=== PATIENT | female | born 1955 | race Caucasian/White ===

== ENCOUNTER 2017-08-03 07:51 | Inpatient (IN) | payer MEDICARE ==
[2017-08-02 10:48] VITALS: BMI 24.7
[2017-08-03 09:33] LABS: Hemoglobin 12.1 g/dL (12.0-16.0); Mean Corpuscular HGB CONC 32.6 g/dL (32.0-36.0); Mean Corpuscular Hemoglobin 31.7 pg (27.0-31.0); Mean Corpuscular Volume 97.3 fl (81.0-99.0); Mean Platelet Volume 6.1 fL (7.4-10.4); Platelet Count 331 thou/uL (130-400); RBC Distribution Width 11.6 % (11.5-14.5); Red Blood Cell (RBC) Count 3.81 mill/uL (4.20-5.40); White Blood Cell (WBC) Count 7.4 thou/uL (4.8-10.8)
[2017-08-03 09:51] LABS: Anion Gap 14 mmol/L (10-20); BUN (Urea Nitrogen) 24 mg/dL (9.8-20.1); Calc. Creatinine Clearance 60 mL/min (70-130); Calcium 9.8 mg/dL (7.8-10.44); Carbon Dioxide 25 mmol/L (23-31); Chloride 104 mmol/L (98-107); Estimated GFR-MDRD 60; Glucose 102 mg/dL (80-115); Potassium 4.1 mmol/L (3.5-5.1); Sodium 139 mmol/L (136-145)
[2017-08-03] MEDS ORDERED: Midazolam HCl 2 mg/2 ml Vial ONE (10:03)
[2017-08-03] MEDS ORDERED: Fentanyl 100 MCG/2 ML VIAL ONE ×2 (10:04→13:20)
[2017-08-03] MEDS ORDERED: CEFAZOLIN/Water 2 GM/20 ML SYRINGE ONE (10:08)
[2017-08-03] MEDS ORDERED: Neomycin-Polymyxin 1 ML AMP ONE ×2 (10:15→11:19)
[2017-08-03] MEDS ORDERED: Zolpidem Tartrate 5 MG TAB PO PRN (10:24)
[2017-08-03] MEDS ORDERED: Ondansetron PF 4 MG/2 ML Vial IVP PRN ×2 (10:24→10:36)
[2017-08-03] MEDS ORDERED: traMADol HCl 50 MG TAB PO PRN ×3 (10:24→10:34)
[2017-08-03] MEDS ORDERED: Ropivacaine 0.2% 550 ML 550 ML NERVE BLCK SCH (10:24)
[2017-08-03] MEDS ORDERED: Promethazine HCl 25 MG/ML VIAL IM PRN (10:24)
[2017-08-03] MEDS ORDERED: HYDROcodone/Acetaminophen 10/325 mg Tablet PO PRN (10:24)
[2017-08-03] MEDS ORDERED: Fentanyl 100 MCG/2 ML VIAL IV PRN (10:25)
[2017-08-03] MEDS ORDERED: Fentanyl 250 MCG/5 ML VIAL ONE (10:26)
[2017-08-03] MEDS ORDERED: Cepastat Lozenges 1 LOZ PO PRN (10:36)
[2017-08-03] MEDS ORDERED: Fleet Enema 133 ML BOT PR PRN (10:36)
[2017-08-03] MEDS ORDERED: Milk Of Magnesia 30 ML UDCUP PO PRN (10:36)
[2017-08-03] MEDS ORDERED: Ondansetron ODT 4 MG TAB PO PRN (10:36)
[2017-08-03] MEDS ORDERED: Bisacodyl 10 MG SUPP PR PRN (10:36)
[2017-08-03] MEDS: Ketorolac Tromethamine 30 MG/ML VIAL IVP SCH ×2 (13:52→17:05)
--- NOTE | 2017-08-03 14:15 | RAD ---
2 VIEWS RIGHT TIBIA AND FIBULA: Date: 08/03/17 COMPARISON: 09/26/16. HISTORY: Postop infection. Fall. FINDINGS/IMPRESSION: Multiple limited intraoperative fluoroscopic views of the right tibia/fibula were submitted for inter pretation. The previously seen plate and screws in the distal aspect of the tibia have been removed. There is an intramedullary joanne in the tibia. The previously seen fibular neck fracture has healed. POS: JURGEN
--- NOTE | 2017-08-03 14:16 | OP ---
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 PROCEDURE: 1. Removal of hardware from right tibia. 2. Intramedullary interlocking rodding of the right distal tibia with bone grafting. SURGEON: Isrrael England M.D. ANESTHESIA: General. TECHNIQUE: The patient had a block performed prior to surgery by Anesthesia. She was given preopera tive IV antibiotics, taken to the operating room and placed in supine position. Satisfactory general anesthesia was performed. The right lower extremity was sterilely prepped and draped in usual fashi on. After exsanguination, the tourniquet was raised to 250 mmHg. The patient had a previous fractur e in the distal shaft of the right tibia. She had a well-healed scar in the anteromedial aspect of t he right leg. Incision was made through that scar. Blunt and sharp dissection was made and there wa s some bone that had formed on the edges of the plate and some bone that formed over the plate. This was removed with an osteotome and a rongeur. The 3.5 cortical and 3.5 locking screws were identifie d and removed. The 2 screws that were used as lag screws were also located and removed using fluoros copy. There was bone defect on the undersurface of the plate and there was a nonunion. Some of the fluid and bone deep in the leg below where the plate was, was sent for Gram stain and culture and sen sitivities and using a curet and rongeur the fibrous tissue that was around the plate and under the p late and in the nonunion were all carefully removed. The wound and the bone was then copiously irrig ated with antibiotic solution using the high speed fruit room hand. A 2-1/2 inch incision was made on the anteromedial aspect of the knee with the knee bent and medial retinaculum was entered. The proximal aspect of the tibia just medial to the tibial tubercle was entered with a guide and then over reamed. The intramedullary canal was then sequentially reamed up to 10.5 mm, including the nonunion site an d down into the distal aspect of the tibia. A [employer]ynthes interlocking intramedullary nail was then inse rted. It was 300 mm in length, 9 mm in diameter, it was taken down to just above the ankle joint. A screw was placed from lateral to medial in the proximal aspect of the tibia and the joanne and a screw was placed from anterior to posterior just above the ankle. This was all performed under fluoroscopi c visualization. This provided good stability for the tibial nonunion. The bone graft that was harv ested with the intramedullary reaming was combined with some allograft bone graft chips and this was placed in the nonunion site in the posterior aspect of the tibia as well as over the area where the p late had been present. The wounds were then closed using 0 Vicryl for the fat and subcutaneous tissu e, and the skin was closed with skin daryl. The medial retinaculum and the knee was closed with 0 Vicryl and this wound was also closed with skin daryl. Sterile dressing was applied. Tourniquet w as released. The patient was placed in a boot. She was awakened, extubated, and transferred to brendan very room in stable condition. ESTIMATED BLOOD LOSS: None. COMPLICATIONS: None. TOURNIQUET TIME: Seventy-four minutes.
[2017-08-03] MEDS ORDERED: Bupivacaine/Epinephrine 0.25% 30 ML VIAL ONE (14:46)
[2017-08-03] MEDS ORDERED: Bupivacaine HCl 0.5%/Epinephrine 1:200,000/PF 30 ml Vial ONE (14:46)
[2017-08-03] MEDS: HYDROcodone/Acetaminophen 10/325 mg Tablet PO PRN ×2 (15:06→21:18)
[2017-08-03] MEDS ORDERED: PROPOFOL 200 MG/20 ML VIAL ONE (15:20)
[2017-08-03] MEDS ORDERED: PHENYLEPHRINE-NS 100 MCG/ML 10 ML SYRINGE ONE (15:20)
[2017-08-03] MEDS ORDERED: Lidocaine 1% PF 5 ML VIAL ONE (15:20)
[2017-08-03] MEDS ORDERED: Dexamethasone 20 MG/5 ML VIAL ONE (15:20)
[2017-08-03] MEDS ORDERED: Ketorolac Tromethamine 30 MG/ML VIAL ONE (15:20)
[2017-08-03] MEDS ORDERED: Non-Formulary Item 1 EACH (Calcium Carbonate/Vitamin D3 [Calcium 600 + Vitamin D] 1 TABLE PO SCH (21:00)
[2017-08-03] MEDS: Senokot S 8.6-50 MG TAB PO SCH (21:16)
[2017-08-03] MEDS: Zolpidem Tartrate 5 MG TAB PO SCH (21:17)
[2017-08-03] MEDS: Ferrous Gluconate 324 MG TAB PO SCH ×2 (21:19→21:24)
[2017-08-03] MEDS: Calcium Carbonate + Vit D 1 TAB PO SCH (21:24)
[2017-08-04] MEDS: HYDROcodone/Acetaminophen 10/325 mg Tablet PO PRN ×3 (01:28→18:36)
[2017-08-04] MEDS: Ketorolac Tromethamine 30 MG/ML VIAL IVP SCH ×5 (05:10→23:12)
--- NOTE | 2017-08-04 06:23 | EKG ---
Test Reason : PREOP Blood Pressure : / mmHG Vent. Rate : 085 BPM Atrial Rate : 085 BPM P-R Int : 184 ms QRS Dur : 078 ms QT Int : 380 ms P-R-T Axes : 038 -06 048 degrees QTc Int : 452 ms Normal sinus rhythm Normal ECG When compared with ECG of 28-AUG-2016 15:13, Nonspecific T wave abnormality no longer evident in Inferior leads Nonspecific T wave abnormality has replaced inverted T waves in Lateral leads QT has shortened Confirmed by ALEXANDER HUTSON ([id number]) on 08/04/2017 6:09:54 AM Referred By: PAULINA Confirmed By:ALEXANDER HUTSON
[2017-08-04] MEDS ORDERED: FOLIC AC PO SCH (09:00)
[2017-08-04] MEDS ORDERED: IRON FUM PO SCH (09:00)
[2017-08-04] MEDS ORDERED: [UNRECOGNIZED DRUG - OTHER] PO SCH (09:00)
[2017-08-04] MEDS ORDERED: MULTIVIT MIN PO SCH (09:00)
[2017-08-04] MEDS: Multivitamin W/ Minerals 1 TAB PO SCH (09:51)
[2017-08-04] MEDS: Venlafaxine HCl XR 150 MG CAP PO SCH (09:51)
[2017-08-04] MEDS: Calcium Carbonate + Vit D 1 TAB PO SCH ×2 (09:51→20:25)
[2017-08-04] MEDS: Senokot S 8.6-50 MG TAB PO SCH ×2 (09:51→20:25)
[2017-08-04] MEDS: Ferrous Gluconate 324 MG TAB PO SCH ×2 (09:51→20:28)
--- NOTE | 2017-08-04 10:48 | PRG ---
DATE OF SERVICE: 08/04/2017 Ms. Louie is 1 day status post removal of hardware from the right distal tibia with irrigation and de bridement of the nonunion of the right distal tibia and interlocking intramedullary rodding. The patient had a block and has an indwelling catheter and provided her with excellent pain relief. The patient's maximum temperature is 99.2. Vital signs are stable. Cultures that were taken in surgery of the right tibia, thus far are negative. The Gram stain showed RBCs, few WBCs, no organisms. PLAN: The patient will be mobilized with PT and OT. She should be nonweightbearing on the right low er extremity. We will change the dressing today. We will continue to monitor cultures. Meantime, w e will continue with p.o. antibiotics including Levaquin 500 mg a day. The patient wants to go to re hab. I have talked with case investigator as far as her getting into rehab possibly tomorrow.
[2017-08-04] MEDS: Zolpidem Tartrate 5 MG TAB PO SCH (20:24)
[2017-08-05] MEDS: HYDROcodone/Acetaminophen 10/325 mg Tablet PO PRN ×3 (04:05→16:36)
[2017-08-05] MEDS: Ketorolac Tromethamine 30 MG/ML VIAL IVP SCH (06:35)
[2017-08-05] MEDS: Calcium Carbonate + Vit D 1 TAB PO SCH (08:33)
[2017-08-05] MEDS: Venlafaxine HCl XR 150 MG CAP PO SCH (08:33)
[2017-08-05] MEDS: Ferrous Gluconate 324 MG TAB PO SCH (08:33)
[2017-08-05] MEDS: Senokot S 8.6-50 MG TAB PO SCH (08:34)
[2017-08-05] MEDS: Multivitamin W/ Minerals 1 TAB PO SCH (08:34)
[2017-08-05] MEDS ORDERED: lamoTRIgine 100 MG TAB PO SCH (09:00)
[2017-08-05 15:51] VITALS: BP 151/77; TEMP 98.3
[2017-08-05] MEDS ORDERED: Lactinex Tablet PO SCH (21:00)
--- NOTE | 2017-08-05 22:51 | DIS ---
DATE OF ADMISSION: 08/03/2017 DATE OF DISCHARGE: 08/05/2017 HISTORY OF PRESENT ILLNESS: Please see admission history and physical. HOSPITAL COURSE: The patient was worked up medically prior to admission, found to be stable for surg ge[place]. She was taken to the operating room on the date of admission where under general anesthetic, th e patient underwent irrigation and debridement of the right distal tibia with removal of plate and sc rews and then intramedullary rodding of the right distal tibia with bone grafting. The patient remai tana afebrile. Vital signs remained stable. She was started on PT and OT, which she tolerated well. Arrangements were made for her to go to rehab to continue to work with PT and OT. She can be touchd own weightbearing on the right lower extremity. Cultures from surgery did grow out gram-negative joanne . The patient was started that evening of surgery on Levaquin. She will continue with the Levaquin pending sensitivities. Her dressing was changed and incision on the right leg and over the right kne e is healing very well. DISCHARGE DIAGNOSES: 1. Nonunion of the right distal tibia. 2. Apparent osteomyelitis of the right tibia. PLAN: The patient will be discharged and transferred to rehab to continue to work on activities of d aily living with physical and occupational therapy. The patient states that when she does go home fr rehab, she will be by herself, so she will need to demonstrate that she can perform all the activi ties as needed. She can touchdown weightbear on the right lower extremity. Nurses will change the d ressing daily, keep an eye on the incision. I will follow and see what the ultimate sensitivities ar e on the right tibia and to see if we continue with Levaquin or possibly change it to a more appropri ate antibiotic, also wrote a prescription for [place] 10 one every 6 hours as needed for pain #60 and shahzad sena a prescription for wheelchair.
== END 2017-08-05 17:45 | DRG 465 ==
LOC: SURG A 07:51 → EDSTATUS 10:44 → SURG A 13:35
PROVIDERS: ADMIT Orthopaedic Surgery; ATTEND Orthopaedic Surgery
PROC: 0SPV0JZ Removal of Synthetic Substitute from Right Knee Joint, Tibial Surface, Open Approach (ICD-10-PCS; principal; 2017-08-03)
PROC: 0QHG06Z Insertion of Intramedullary Internal Fixation Device into Right Tibia, Open Approach (ICD-10-PCS; 2017-08-03)
PROC: 0QBG0ZX Excision of Right Tibia, Open Approach, Diagnostic (ICD-10-PCS; 2017-08-03)
DX: S82.201K Unspecified fracture of shaft of right tibia, subsequent encounter for closed fracture with nonunion (principal); D64.9 Anemia, unspecified; M19.90 Unspecified osteoarthritis, unspecified site; F32.9 Major depressive disorder, single episode, unspecified; Z90.710 Acquired absence of both cervix and uterus
CPT/HCPCS: 36415; 76001; 80048; 85027; 87070; 87077; 87186; 87205; 93005; 93010; 96374; A4306; C1713; C1769; G8978-GP-CJ; G8979-GP-CI; G8987-GO-CK; G8988-GO-CI; J0670; J1100; J1885; J2001; J2250; J2704; J2795; J3010

== ENCOUNTER 2017-11-05 14:14 | Emergency (ER) | payer MEDICARE ==
[2017-11-05] MEDS ORDERED: Proparacaine 0.5% Opth 15 ML BOT ONE (14:32)
[2017-11-05] MEDS ORDERED: Fluorescein Opthalmic Strip ONE (14:33)
[2017-11-05] MEDS ORDERED: Nitrazine Tape 1 ROLL ONE ×2 (14:51)
== END 2017-11-05 16:20 | disposition home or self-care (01) ==
LOC: ERS 14:14
DX: S05.01XA Injury of conjunctiva and corneal abrasion without foreign body, right eye, initial encounter (principal); F31.9 Bipolar disorder, unspecified; Z79.899 Other long term (current) drug therapy; Y33.XXXA Other specified events, undetermined intent, initial encounter
CPT/HCPCS: 99283

== ENCOUNTER 2018-11-26 09:21 | Inpatient (IN) | payer MEDICARE ==
[2018-11-26] MEDS ORDERED: Morphine 4 MG/ML VIAL ONE (09:51)
[2018-11-26] MEDS ORDERED: Ondansetron PF 4 MG/2 ML Vial ONE (09:52)
[2018-11-26] MEDS ORDERED: diphenhydrAMINE 50 MG/ML VIAL ONE (10:18)
[2018-11-26 10:20] LABS: Bacteria/HPF None Seen HPF (None Seen); Bilirubin Negative (Negative); Blood, Urine 1+ (Negative); Clarity Clear (Clear); Glucose, Urine (Dipstick) Normal (Negative); Leukocyte 75 Leu/uL (Negative); Nitrite Negative (Negative); Protein, Urine (Dipstick) 30 mg/dL (Neg-Trace); Squamous Epithelial 0-3 HPF (0-3); Urobilinogen Normal mg/dL (Less than 2)
[2018-11-26 10:24] LABS: #Eosinphils 0.3 thou/uL (0.0-0.7); #Lymphocytes 1.2 thou/uL (1.20-3.40); #Monocytes 1.7 thou/uL (0.11-0.59); #Neutrophils 13.3 thou/uL (1.40-6.50); %Basophils 0.2 % (0.0-1.0); %Lymphocytes 7.4 % (21.0-51.0); %Monocytes 10.4 % (0.0-10.0); Hemoglobin 10.1 g/dL (12.0-16.0); Mean Corpuscular HGB CONC 31.9 g/dL (32.0-36.0); Mean Corpuscular Hemoglobin 32.3 pg (27.0-31.0); Mean Platelet Volume 6.3 fL (7.4-10.4); Platelet Count 273 thou/uL (130-400); RBC Distribution Width 13.1 % (11.5-14.5); Red Blood Cell (RBC) Count 3.13 mill/uL (4.20-5.40); White Blood Cell (WBC) Count 16.6 thou/uL (4.8-10.8)
[2018-11-26 10:43] LABS: ALT (SGPT) Less than 7 U/L (8-55); AST (SGOT) 11 U/L (5-34); Albumin 3.6 g/dL (3.4-4.8); Alkaline Phosphatase 77 U/L (40-150); Anion Gap 11 mmol/L (10-20); BUN (Urea Nitrogen) 19 mg/dL (9.8-20.1); Bilirubin, Total 0.3 mg/dL (0.2-1.2); Calc. Creatinine Clearance 0 mL/min (70-130); Calcium 8.7 mg/dL (7.8-10.44); Carbon Dioxide 26 mmol/L (23-31); Chloride 106 mmol/L (98-107); Estimated GFR-MDRD 61; Globulin 3.3 g/dL (2.4-3.5); Glucose 103 mg/dL (80-115); Lipase 19 U/L (8-78); Potassium 3.2 mmol/L (3.5-5.1); Protein, Total 6.9 g/dL (6.0-8.3); Sodium 140 mmol/L (136-145)
[2018-11-26] MEDS ORDERED: Fentanyl 100 MCG/2 ML VIAL ONE (11:48)
[2018-11-26] MEDS ORDERED: Piperacillin/Tazobactam 4.5 GM VIAL ONE (11:49)
[2018-11-26] MEDS ORDERED: ISOVUE-370 76%-LOCM 1 ML ONE (13:55)
--- NOTE | 2018-11-26 14:23 | CT ---
CT ABDOMEN AND PELVIS WITH IV CONTRAST: 11/26/2018 PROVIDED CLINICAL HISTORY: Right-sided abdominal pain. FINDINGS: There is a small pericardial effusion. The visualized lung bases are free of significant opacity. T here is mucosal thickening and pericolonic fat stranding involving the hepatic flexure and mid to dis velma ascending colon. There is no evidence for a juxtacolonic fluid collection or free intraperitonea l air. There is focal mural thickening involving the descending duodenum, in proximity to the coloni c fat stranding change, presumably reactive, though this is not completely certain. The solid abdominal organs demonstrate no significant abnormality. There are bilateral simple appearing renal cysts. There is no evidence for bowel obstruction. The appendix appears normal. Vascular calcifications are seen. No significant mesenteric stenosis is apparent. The osseous structures demonstrate no concerning lytic or blastic lesions. Advanced right hip degene rative arthrosis. Lumbar spine degenerative change. IMPRESSION: 1. Mural thickening and juxtacolonic fat stranding involving the hepatic flexure and right colon as above. Differential considerations include colitis. No significant diverticular disease is seen in this region. Diverticulitis could also be considered. Inflammatory carcinoma is less likely but is not excluded. 2. Focal mural thickening involving the descending duodenum, which could reactive, given its proximi ty to the colonic change. Intrinsic duodenal abnormality is not excluded, and followup is recommende d. POS: JUAN
[2018-11-26] MEDS ORDERED: Bisacodyl 5 MG TAB PO PRN (14:26)
[2018-11-26] MEDS ORDERED: Diabetic Tussin 200 MG/10 ML UDCUP PO PRN (14:26)
[2018-11-26] MEDS ORDERED: Ondansetron ODT 4 MG TAB PO PRN (14:26)
[2018-11-26] MEDS ORDERED: Calcium Carbonate 500 MG ChewTAB PO PRN (14:26)
[2018-11-26] MEDS ORDERED: hydrALAZINE 20 MG/ML VIAL SLOW IVP PRN (14:26)
[2018-11-26] MEDS ORDERED: Loperamide HCl 2 MG CAP PO PRN (14:26)
[2018-11-26] MEDS ORDERED: Ondansetron PF 4 MG/2 ML Vial IVP PRN (14:26)
[2018-11-26] MEDS ORDERED: Cepastat Lozenges 1 LOZ PO PRN (14:26)
[2018-11-26] MEDS ORDERED: Labetalol HCl 100 MG/20 ML VIAL SLOW IVP PRN (14:26)
[2018-11-26] MEDS ORDERED: Loratadine 10 MG TAB PO PRN (14:26)
[2018-11-26] MEDS ORDERED: Artificial Tears 18 DROP/0.9 ML EA EYE PRN (14:26)
[2018-11-26] MEDS ORDERED: Bisacodyl 10 MG SUPP PR PRN (14:26)
[2018-11-26] MEDS ORDERED: Senokot S 8.6-50 MG TAB PO PRN (14:26)
[2018-11-26] MEDS ORDERED: Sodium Chloride 0.65% Nasal 44 ML BOT EA NARE PRN (14:26)
[2018-11-26] MEDS ORDERED: Fentanyl 100 MCG/2 ML VIAL SLOW IVP PRN (14:29)
[2018-11-26] MEDS ORDERED: cefTRIAXone\\ROCEPHIN 1 GM in Sodium Chloride 0.9% 100 ML IVPB SCH (14:30)
[2018-11-26] MEDS: Ketorolac Tromethamine 30 MG/ML VIAL IVP PRN ×2 (15:14→20:58)
[2018-11-26] MEDS: NS 0.9% w/ 20 MEQ KCL 1,000 ML/1,000 ML BAG IV SCH (15:19)
[2018-11-26] MEDS: Acetaminophen 325 MG TAB PO PRN (17:02)
[2018-11-26] MEDS: Piperacillin/Tazobactam 4.5 GM in Sodium Chloride 0.9% 100 ML IVPB SCH (18:40)
[2018-11-26] MEDS: lamoTRIgine 100 MG TAB PO SCH (20:20)
[2018-11-26] MEDS: Calcium Carbonate + Vit D 1 TAB PO SCH (20:20)
[2018-11-26] MEDS: Famotidine 20 MG TAB PO SCH (20:20)
[2018-11-26] MEDS: Zolpidem Tartrate 5 MG TAB PO PRN (20:21)
[2018-11-26] MEDS ORDERED: Venlafaxine HCl XR 150 MG CAP PO SCH (21:00)
--- NOTE | 2018-11-26 21:13 | HP ---
PRIMARY CARE PHYSICIAN: Dr. Benson Horton. FAMILY HISTORY: Positive for hypertension, stroke to her father. CURRENT HOME MEDICATIONS: 1. Calcium with vitamin D 1 tablet p.o. twice daily. 2. Griseofulvin 500 mg p.o. daily. 3. Lamictal 200 mg p.o. b.i.d. 4. Levaquin 750 mg daily. 5. Milk of magnesia 30 mL p.o. daily. 6. Multivitamin one tablet p.o. daily. 7. Seroquel 400 mg p.o. at bedtime. 8. Venlafaxine ER p.o. at bedtime. 9. Ambien 10 mg p.o. at bedtime. 10. Ibuprofen 400 mg q.6 hourly p.r.n. 11. Zofran 4 mg q.6 hourly p.r.n. EMERGENCY ROOM COURSE: The patient has received Zosyn 4.5 g, fentanyl 50 mcg, morphine 4 mg, Benadryl 25 mg, Zofran 8 mg, and IV fluid. PHYSICAL EXAMINATION: VITAL SIGNS: On arrival, blood pressure 121/69, pulse 100, respiratory rate 16, temperature 98.3, and saturations 99% on room air. Weight 68 kg. GENERAL: The patient is currently alert and awake, in mild distress due to pain. HEENT: Head; normocephalic, atraumatic. Eyes; pupils round, reactive to light. Extraocular muscle intact. ENT; oropharynx within normal limits. Moist mucous membranes. No oral lesion. No pharyngeal erythema. No exudate. NECK: Supple. No JVD. No thyromegaly. No carotid bruit. No jugular venous distention. LUNGS: Clear to auscultation without any rhonchi or rales. CARDIAC: S1, S2 regular without any murmur. No gallop. No rub. ABDOMEN: The patient does have right-sided abdominal discomfort. No peritoneal sign. Voluntary guarding noted. No rigidity. No rebound. BACK: Unremarkable. No CVA tenderness. EXTREMITIES: Upper extremities; passive movement of all joints are normal. Lower extremities, no edema. Good distal pulsation. SKIN: No skin rash. HEMATOLOGIC: No lymphadenopathy. NEUROLOGIC: Nonfocal examination. LABORATORY DATA: CBC; WBC 16.6, hemoglobin 10.1, platelet 273. BMP; sodium 140 , potassium 3.2, chloride 106, carbon dioxide 26, anion gap 11, BUN 19, creatinine 0.93, glucose 103, calcium 8.7. LFT; AST 11, ALT less than 7, alkaline phosphatase 77, albumin 3.6 lipase 19. Urinalysis; leukocyte esterase 75, trace blood. IMAGING STUDIES: CT abdomen and pelvis showing mural thickening and pericolonic fat stranding involving hepatic flexure and mid to distal ascending colon ASSESSMENT/PLAN: 1. Acute right-sided abdominal pain. The patient has mural thickening and juxta colonic fat stranding involving hepatic flexure on the right colon. At this point, differential diagnosis is acute colitis versus diverticulitis. Underlying inflammation cannot be entirely excluded. At this point, the patient's pain will be controlled with fentanyl p.r.n. basis. We will give her IV fluid. We will keep her on clear liquid diet. Gastroenterology will be consulted. We will also continue with empirically Zosyn to cover anaerobes and gram-negative rods, she may need colonoscopic evaluation. 2. Urinary tract infection. The patient has increased frequency. Her urinalysis is slightly abnormal. The patient is already kept on Zosyn therapy that should cover urinary tract pathogen. We will follow up on urine culture results. 3. Macrocytic anemia. We will continue with folic acid and vitamin B12 therapy. 4. Anxiety, depression, and bipolar disorder. The patient will continue her home medications; Lamictal 200 mg b.i.d., Seroquel 1200 mg p.o. at bedtime, venlafaxine ER p.o. at bedtime, Ambien 20 mg p.o. at bedtime as per home dosage. 5. Deep venous thrombosis prophylaxis. Lovenox 40 mg subcu daily. GI prophylaxis. Pepcid 20 mg p.o. b.i.d. 6. Chronic antibiotic therapy. The patient is taking Levaquin and Griseofulvin as per Orthopedic recommendation, which we will continue while in hospital. 7. Chronic constipation. We will continue milk of magnesia and other stool softener p.r.n. basis. CODE STATUS: The patient is full code. The patient does not have any surrogate decision maker. DISPOSITION PLAN: Based on clinical course, we are expecting the patient's stay in hospital more than 2 midnights. Plan of care discussed with the patient and her sister at bedside. JANIYA
[2018-11-26] MEDS ORDERED: GoLYTELY 4,000 ml Bottle PO SCH (21:30)
[2018-11-27] MEDS: Piperacillin/Tazobactam 4.5 GM in Sodium Chloride 0.9% 100 ML IVPB SCH ×5 (00:12→23:46)
[2018-11-27] MEDS: NS 0.9% w/ 20 MEQ KCL 1,000 ML/1,000 ML BAG IV SCH ×2 (00:13→14:58)
[2018-11-27] MEDS: Acetaminophen 325 MG TAB PO PRN (04:13)
--- NOTE | 2018-11-27 05:01 | CON ---
DATE OF CONSULTATION: 11/26/2018 CONSULTING PHYSICIAN: Danita Barton MD REASON FOR CONSULTATION: Right upper quadrant abdominal pain, abnormal GI imaging. HISTORY OF PRESENT ILLNESS: The patient is a 63-year-old female with past medical history of pancreatitis, bipolar disorder, and GERD, presenting with complaints of right-sided abdominal pain. She states that she was in her usual state of health until approximately 1 week ago when she began having increased right lower quadrant abdominal pain characterized as gnawing/cutting type pain, would radiate to the suprapubic/left lower quadrant as well as the right upper quadrant, was characterized as a constant type sensation with waxing/waning severity, and reached a severity of 9/10. This abdominal pain was better with eating and having a bowel movement, worse with increased physical activity and not having a bowel movement. During this time period, she did not have any significant change in her bowel habits, having approximately 1 semi-solid bowel movement per day that would sometimes require increased straining. However, she does routinely use milk of magnesia in order to facilitate having a bowel movement and when she does not use this particular medication, she will not have a bowel movement for approximately 4 to 5 days. Other than the above, she denies any hematemesis, melena, hematochezia, nausea, vomiting, fevers, chills, dysphagia, odynophagia, or weight loss. REVIEW OF SYSTEMS: A 10-category review of systems was obtained with all responses negative except for the pertinent positives as listed in HPI. PAST MEDICAL HISTORY: As per HPI. PAST SURGICAL HISTORY: Hysterectomy and wrist fracture repair. FAMILY HISTORY: Denies any GI malignancies. SOCIAL HISTORY: Has a prior history of heavy alcohol use, but has been abstinence since 2007. She otherwise denies any tobacco or illicit drug use. OUTPATIENT MEDICATIONS: Reviewed. ALLERGIES: CODEINE. PHYSICAL EXAMINATION: VITAL SIGNS: Temperature 98.4, pulse 115, blood pressure 121/61, respiratory rate 20, saturating 95% on room air. GENERAL: The patient was lying in bed, in no acute distress. Alert and oriented x3. HEENT: Normocephalic, atraumatic. NECK: Supple. No JVD or scleral icterus noted. CARDIOVASCULAR: Regular rate and rhythm with no discernible murmurs, gallops, or rubs. RESPIRATORY: Clear to auscultation bilaterally with no discernible wheezes or rales. ABDOMEN: Normoactive bowel sounds. Soft, nondistended. Tenderness to palpation in the right upper quadrant, right lower quadrant, and left lower quadrant. EXTREMITIES: No cyanosis, clubbing, or edema. LABORATORY DATA: CBC with a white blood cell count of 16.6, hemoglobin 10.1, hematocrit 31.7, platelets 273. Chemistry with a sodium of 140, potassium 3.2, chloride 106, CO2 26, BUN 19, creatinine 0.93, glucose 103, AST 11, ALT less than 7, alkaline phosphatase 77, total bilirubin 0.3, albumin 3.6, lipase 19. Urinalysis consistent with urinary tract infection. IMAGING DATA: A CT of the abdomen and pelvis was obtained on November 26, 2018, which showed a small pericardial effusion. However, it also did show mucosal thickening and pericolonic fat stranding of the hepatic flexure and ascending colon as well as mural thickening of the descending duodenum that appears to be reactive in nature. On chart review, the patient did undergo a colonoscopy on July 04, 2013, which showed a small ascending colon polyp with pathology results yielding a hyperplastic polyp and recommendations to repeat colonoscopy in 10 years. ASSESSMENT AND PLAN: The patient is a 63-year-old female with past medical history of pancreatitis, bipolar disorder, and gastroesophageal reflux disease, presenting with right-sided abdominal pain and abnormal GI imaging. Abdominal pain. The patient is presenting with a relatively acute onset of right-sided abdominal pain characterized as a gnawing/cutting type sensation originating in the right lower quadrant and radiating along the lower abdominal quadrants. She does have baseline constipation, for which she has to take laxatives on a daily basis in order to facilitate having a bowel movement raising some concern for constipation contributing to her current abdominal pain. However, she does have a CT scan showing mucosal thickening and pericolonic fat stranding of the hepatic flexure and ascending colon concerning for a possible inflammatory versus neoplastic process. Given her elevated white blood cell count, an infectious etiology is also within the differential, albeit less likely given her lack of significant diarrhea on admission. At this point, differential could include Crohn disease, infectious etiology, neoplastic process, appendicitis (much less likely), functional abdominal pain. RECOMMENDATIONS: 1. Would obtain infectious stool studies for possible infectious etiology contributing to her current constellation of symptoms. 2. We will plan for colonoscopy prep tonight with colonoscopy in the morning for further evaluation of the intraluminal colon. 3. We would continue antibiotics for her urinary tract infection. 4. Further recommendations to follow endoscopy. Job ID: [id number]
[2018-11-27 06:15] LABS: #Eosinphils 0.4 thou/uL (0.0-0.7); #Lymphocytes 1.4 thou/uL (1.20-3.40); #Monocytes 1.5 thou/uL (0.11-0.59); #Neutrophils 11.9 thou/uL (1.40-6.50); %Basophils 0.2 % (0.0-1.0); %Eosinophils 2.9 % (0.0-10.0); %Lymphocytes 9.1 % (21.0-51.0); %Monocytes 9.8 % (0.0-10.0); Hemoglobin 9.7 g/dL (12.0-16.0); Mean Corpuscular HGB CONC 32.7 g/dL (32.0-36.0); Mean Corpuscular Hemoglobin 32.9 pg (27.0-31.0); Mean Platelet Volume 6.6 fL (7.4-10.4); Platelet Count 252 thou/uL (130-400); RBC Distribution Width 12.8 % (11.5-14.5); Red Blood Cell (RBC) Count 2.94 mill/uL (4.20-5.40); White Blood Cell (WBC) Count 15.3 thou/uL (4.8-10.8)
[2018-11-27] MEDS: Ketorolac Tromethamine 30 MG/ML VIAL IVP PRN ×2 (06:30→17:45)
[2018-11-27 06:36] LABS: Anion Gap 12 mmol/L (10-20); BUN (Urea Nitrogen) 7 mg/dL (9.8-20.1); Calc. Creatinine Clearance 0 mL/min (70-130); Calcium 9.1 mg/dL (7.8-10.44); Carbon Dioxide 23 mmol/L (23-31); Chloride 109 mmol/L (98-107); Estimated GFR-MDRD 89; Glucose 100 mg/dL (80-115); Potassium 3.6 mmol/L (3.5-5.1); Sodium 140 mmol/L (136-145)
[2018-11-27] MEDS: Enoxaparin Sodium 40 MG/0.4 ML SYRINGE SC SCH (08:06)
[2018-11-27 09:51] VITALS: BMI 27.3
[2018-11-27] MEDS: Multivitamin W/ Minerals 1 TAB PO SCH (12:38)
[2018-11-27] MEDS: Calcium Carbonate + Vit D 1 TAB PO SCH ×2 (12:38→21:07)
[2018-11-27] MEDS: Cyanocobalamin (Vitamin B-12) 1,000 MCG TAB PO SCH (12:38)
[2018-11-27] MEDS: Famotidine 20 MG TAB PO SCH ×2 (12:39→21:07)
[2018-11-27] MEDS: lamoTRIgine 100 MG TAB PO SCH ×2 (12:39→21:07)
[2018-11-27] MEDS: Folic Acid 1 MG TAB PO SCH (12:39)
[2018-11-27] MEDS: Saccharomyces boulardii 250 MG CAP PO SCH (12:39)
[2018-11-27] MEDS: Venlafaxine HCl XR 150 MG CAP PO SCH (12:39)
[2018-11-27] MEDS: Vancomycin HCl 25 MG/ML Oral PO SCH ×3 (12:40→23:46)
[2018-11-27] MEDS: Milk Of Magnesia 30 ML UDCUP PO SCH (12:42)
[2018-11-27] MEDS: [UNRECOGNIZED DRUG - OTHER] PO SCH (12:43)
--- NOTE | 2018-11-27 13:45 | PDOC.HOSPP ---
- Subjective Subjective: Patient seen and examined. No new complaints. No overnight events - Objective Vital Signs & Weight: Vital Signs (12 hours) Temp Pulse Resp BP Pulse Ox 11/27/18 12:00 98.8 F 91 18 172/91 H 100 11/27/18 08:00 98.1 F 86 18 147/82 H 97 11/27/18 03:56 99.8 F H 104 H 20 167/84 H 94 L Weight Weight 149 lb 14.629 oz I&O: 11/26/18 11/27/18 11/28/18 06:59 06:59 06:59 Intake Total 1999 Balance 1999 Result Diagrams: 11/27/18 05:32 11/27/18 05:32 ROS - Review of Systems All systems: All other ROS were reviewed and found negative. Constitutional: denies: fever, chills, sweats, weakness, malaise, other Eyes: denies: pain, vision change, conjunctivae inflammation, eyelid inflammation, redness, other ENT: denies: ear pain, ear discharge, nose pain, nose discharge, nose congestion , mouth pain, mouth swelling, throat pain, throat swelling, other Respiratory: denies: cough, dry, shortness of breath, hemoptysis, SOB with excertion, pleuritic pain, sputum, wheezing, other Cardiovascular: denies: chest pain, palpitations, orthopnea, paroxysmal noc. dyspnea, edema, light headedness, other Gastrointestinal: reports: abdominal pain. denies: nausea, vomitting, diarrhea , constipation, melena, hematochezia, other Genitourinary: denies: dysuria, frequency, incontinence, hematuria, retention, other Musculoskeletal: denies: neck pain, shoulder pain, arm pain, back pain, hand pain, leg pain, foot pain, other Skin: denies: rash, lesions, liborio, bruising, other - Medication Medications: Active Medications Generic Name Dose Route Start Last Admin Trade Name Freq PRN Reason Stop Dose Admin Acetaminophen 650 mg 11/26/18 14:26 11/27/18 04:13 Tylenol PO 650 mg Q4H PRN Administration Headache/Fever/Mild Pain (1-3) Calcium/Vitamin D 1 tab 11/26/18 21:00 11/27/18 12:38 Caltrate 600 + Vit D PO 1 tab BID SIN Administration Cyanocobalamin 1,000 mcg 11/27/18 09:00 11/27/18 12:38 Vitamin B-12 PO 1,000 mcg DAILY SIN Administration Enoxaparin Sodium 40 mg 11/27/18 09:00 11/27/18 08:06 Lovenox SC Not Given 09 [facility] Famotidine 20 mg 11/26/18 21:00 11/27/18 12:39 Pepcid PO 20 mg BID SIN Administration Fentanyl 25 mcg 11/26/18 14:29 11/27/18 09:44 Sublimaze SLOW IVP 25 mcg Q2H PRN Administration Moderate to Severe Pain (6-10) Folic Acid 1 mg 11/27/18 09:00 11/27/18 12:39 Folvite PO 1 mg DAILY SIN Administration Griseofulvin Microsize 500 mg 11/27/18 09:00 11/27/18 12:43 Griseofulvin,Microsize Oral Suspension PO 500 mg DAILY SIN Administration Potassium Chloride/Sodium Chloride 1,000 ml in 1,000 mls @ 100 mls/hr 14:30 11/27/18 00:13 Ns 0.9% W/ 20 Meq Kcl IV 1,000 mls .Q10H SIN Administration Piperacillin Sod/Tazobactam 100 mls @ 200 mls/hr 11/26/18 18:00 11/27/18 12: 40 Sod 4.5 gm/ Sodium Chloride IVPB 100 mls Q6HR SIN Administration Iron/Minerals/Multivitamins 1 tab 11/27/18 09:00 11/27/18 12:38 Theragran M PO 1 tab DAILY [facility] Administration Ketorolac Tromethamine 15 mg 11/26/18 14:30 11/27/18 06:30 Toradol IVP 12/01/18 14:31 15 mg Q6H PRN Administration Pain Lamotrigine 200 mg 11/26/18 21:00 11/27/18 12:39 Lamictal PO 200 mg BID SIN Administration Levofloxacin 750 mg 11/27/18 09:00 11/27/18 12:39 Levaquin PO 750 mg DAILY SIN Administration Magnesium Hydroxide 30 ml 11/27/18 09:00 11/27/18 12:42 Milk Of Magnesium PO Not Given DAILY [facility] Quetiapine Fumarate 1,200 mg 11/26/18 21:00 11/26/18 20:21 Seroquel PO 1,200 mg HS SIN Administration Saccharomyces Boulardii 250 mg 11/27/18 09:00 11/27/18 12:39 Florastor PO 250 mg DAILY SIN Administration Vancomycin HCl 125 mg 11/27/18 12:00 11/27/18 12:40 First Vancomycin PO 125 mg Q6HR SIN Administration Venlafaxine HCl 150 mg 11/27/18 09:00 11/27/18 12:39 Effexor Xr PO 150 mg QAM SIN Administration Zolpidem Tartrate 10 mg 11/26/18 18:10 11/26/18 20:21 Ambien PO 10 mg HS PRN Administration Insomnia - Exam NAD, awake alert Eye: PERRL, anicteric sclera ENT: normocephalic atraumatic, no oropharyngeal lesions Neck: supple, symmetric, no JVD, no Thyromegaly Heart: RRR, no murmur, no gallops, no rubs Respiratory: CTAB, no wheezes, no rales, no ronchi Gastrointestinal: soft, non-distended, normal bowel sounds, no palpable masses Extremities: no cyanosis, no clubbing, no edema Skin: normal turgor, no lesions, no rashes Neurological: CN's grossly intact, normal sensation to touch, no focal deficits Musculoskeletal: normal tone, normal strength Psychiatric: normal affect, normal behavior, A&O x 3 Hosp A/P (1) Abdominal pain Code(s): R10.9 - UNSPECIFIED ABDOMINAL PAIN Status: Acute (2) Clostridioides difficile infection Code(s): A49.8 - OTHER BACTERIAL INFECTIONS OF UNSPECIFIED SITE Status: Acute (3) Leucocytosis Code(s): D72.829 - ELEVATED WHITE BLOOD CELL COUNT, UNSPECIFIED Status: Acute (4) Right sided colitis Code(s): K52.9 - NONINFECTIVE GASTROENTERITIS AND COLITIS, UNSPECIFIED Status : Acute (5) UTI (urinary tract infection) Status: Acute (6) Bipolar disorder Code(s): F31.9 - BIPOLAR DISORDER, UNSPECIFIED Status: Chronic (7) Macrocytic anemia Code(s): D53.9 - NUTRITIONAL ANEMIA, UNSPECIFIED Status: Chronic (8) Hypokalemia Code(s): E87.6 - HYPOKALEMIA Status: Resolved - Plan old records reviewed/req, continue antibiotics today plan for colonoscopy continue empiric zosyn for now will add oral vancomycin as her stool is positive for c-diff antigen add florastor pain control wbc improving will repeat labs tomorrow ambulate as tolerated GI following
--- NOTE | 2018-11-27 13:55 | HP ---
Please see history and physical report on November 26, 2018, report #[id number] for additional information. This dictation is for some leftover information for that H and P report. HISTORY OF PRESENT ILLNESS: A 63-year-old female who was admitted by me yesterday. She presented to emergency room with complaint of abdominal pain on the right side. She was complaining of predominantly right upper quadrant and right lower quadrant pain, which was pretty much constant, associated with nausea without any vomiting. She did not have any diarrhea. She was feeling constipated. She did not have any UTI symptoms. She did not have any fever or chills. Her pain was unbearable. She was brought to emergency room and she had a CT abdomen and pelvis in the emergency room, which showed colitis of ascending colon as well as hepatic flexure of colon on the right side. She also found with some nonsignificant urinary tract infection, though the patient was not reporting any UTI symptoms. She did not have any fever. REVIEW OF SYSTEMS: CONSTITUTIONAL: Negative for weight loss or gain, ability to conduct usual activities. SKIN: Negative for rash, itching. EYES: Negative for double vision, pain. ENT/MOUTH: Negative for nose bleeding, neck stiffness, pain, tenderness. CARDIOVASCULAR: Negative for palpitations, dyspnea on exertion, orthopnea. RESPIRATORY: Negative for shortness of breath, wheezing, cough, hemoptysis, fever or night sweats. GASTROINTESTINAL: Negative for poor appetite, abdominal pain, heartburn, nausea, vomiting, constipation, or diarrhea. GENITOURINARY: Negative for urgency, frequency, dysuria, nocturia. MUSCULOSKELETAL: Negative for pain, swelling. NEUROLOGIC/PSYCHIATRIC: Negative for anxiety, depression. ALLERGY/IMMUNOLOGIC: Negative for skin rash, bleeding tendency. Please see my HPI for pertinent positives and negatives. All other review of systems reviewed and negative except as mentioned in HPI. PAST MEDICAL HISTORY: Reviewed and negative. PAST PSYCHIATRIC HISTORY: Anxiety, depression, bipolar disorder. PAST SURGICAL HISTORY: Right leg surgery x2, right wrist surgery, hysterectomy. SOCIAL HISTORY: The patient denies any tobacco, alcohol, or illicit drug abuse. She lives at home by herself. FAMILY HISTORY: No family history of colon cancer, stroke, or cancer. ALLERGIES: CODEINE, SULFATE GIVES NAUSEA. REST OF INFORMATION IS MENTIONED IN PREVIOUS, MY H AND P REPORT INCLUDING EMERGENCY ROOM COURSE, HOME MEDICATION, PHYSICAL EXAMINATION, LABORATORY DATA, ASSESSMENT AND PLAN, AND DISPOSITION PLAN. Job ID: [id number]
[2018-11-27] MEDS: Zolpidem Tartrate 5 MG TAB PO PRN (21:07)
--- NOTE | 2018-11-27 22:23 | PRG ---
DATE OF SERVICE: 11/27/2018 REASON FOR CONSULTATION: Right-sided abdominal pain, abnormal GI imaging. SUBJECTIVE: The patient was set for colonoscopy earlier this morning for intraluminal evaluation of the colon regarding her right-sided abdominal pain and evidence of possible colitis in the right colon. However, infectious stool studies were performed, that were positive for both C diff antigen and toxin, making this a much more likely explanation for her constellation of symptoms and imaging findings. Subsequently, the colonoscopy was canceled in favor of treating her for this infection given the increased risk of perforation with instrumentation with this particular infection. At the time of my evaluation, the patient states that she was feeling better just with the GoLYTELY prep and adds that she denies any nausea, vomiting, fevers, chills, shortness of breath, chest pain, GI bleeding, dysphagia or odynophagia. She does continue to have right-sided abdominal pain, but states that it has improved when compared to on admission. OBJECTIVE: VITAL SIGNS: Temperature 98.8, pulse 105, blood pressure 177/83, respiratory rate 16, and saturating 96% on room air. GENERAL: The patient was lying in bed, in no acute distress, alert and oriented x4. CARDIOVASCULAR: Regular rate and rhythm. RESPIRATORY: Clear to auscultation bilaterally. ABDOMEN: Normoactive bowel sounds. Soft and nondistended. Tenderness to palpation in the right upper and right lower quadrant. EXTREMITIES: No cyanosis, clubbing or edema. LABORATORY DATA: CBC with a white blood cell count of 15.3, hemoglobin 9.7, hematocrit 29.5, and platelets 252. Chemistry with a sodium of 140, potassium 3.6, chloride 109, CO2 of 23, BUN 7, creatinine 0.67, and glucose 100. Microbiology shows negative for Campylobacter and E coli with Shiga-like toxin; however, C difficile was positive for both antigen and toxin. IMAGING DATA: No current GI imaging is available for review. ASSESSMENT AND PLAN: The patient is a 63-year-old female with past medical history of pancreatitis, bipolar disorder and gastroesophageal reflux disease, presenting with right-sided abdominal pain and colitis on imaging, now with Clostridium difficile positive infectious stool studies. Clostridium difficile colitis: The patient initially presented with acute onset of right-sided abdominal pain in addition to CT finding showing mucosal thickening and pericolonic fat stranding of the hepatic flexure and ascending colon, concerning for an inflammatory versus neoplastic process. With her significantly elevated white blood cell count, it was unclear if this was due to a concurrent urinary tract infection versus an infectious etiology within the colon itself. So, colonoscopy was planned for intraluminal evaluation. However, upon obtaining infectious stool studies, they were positive for Clostridium difficile antigen and toxin, making this a much more likely etiology for her abdominal pain and GI imaging findings. RECOMMENDATIONS: 1. We would start the patient on oral vancomycin 125 mg every 6 hours x14 days for treatment of acute uncomplicated Clostridium difficile-associated disease. 2. We would hold on any endoscopic management at this time due to increased risk of perforation with this modality. 3. We would tailor antibiotics for her urinary tract infection to avoid further recurrences of C diff infection in the future. 4. We could consider addition of Saccharomyces boulardii as adjunctive therapy in addition to oral vancomycin. Given the high likelihood of Clostridium difficile-associated disease causing both her abdominal pain and imaging findings in addition to her uncomplicated disease, we will sign off at this time. Please call with any questions. Job ID: [id number]
[2018-11-28] MEDS: NS 0.9% w/ 20 MEQ KCL 1,000 ML/1,000 ML BAG IV SCH (01:21)
[2018-11-28] MEDS: Vancomycin HCl 25 MG/ML Oral PO SCH ×2 (05:08→12:39)
[2018-11-28] MEDS: Piperacillin/Tazobactam 4.5 GM in Sodium Chloride 0.9% 100 ML IVPB SCH (05:08)
[2018-11-28 08:42] VITALS: BP 159/82; TEMP 98.2
[2018-11-28] MEDS: lamoTRIgine 100 MG TAB PO SCH (10:04)
[2018-11-28] MEDS: Venlafaxine HCl XR 150 MG CAP PO SCH (10:05)
[2018-11-28] MEDS: Cyanocobalamin (Vitamin B-12) 1,000 MCG TAB PO SCH (10:05)
[2018-11-28] MEDS: Famotidine 20 MG TAB PO SCH (10:05)
[2018-11-28] MEDS: Calcium Carbonate + Vit D 1 TAB PO SCH (10:05)
[2018-11-28] MEDS: Saccharomyces boulardii 250 MG CAP PO SCH (10:06)
[2018-11-28] MEDS: Folic Acid 1 MG TAB PO SCH (10:07)
[2018-11-28] MEDS: Multivitamin W/ Minerals 1 TAB PO SCH (10:08)
[2018-11-28] MEDS: Enoxaparin Sodium 40 MG/0.4 ML SYRINGE SC SCH (10:09)
[2018-11-28] MEDS: [UNRECOGNIZED DRUG - OTHER] PO SCH (10:10)
[2018-11-28 10:12] LABS: #Eosinphils 0.4 thou/uL (0.0-0.7); #Lymphocytes 1.3 thou/uL (1.20-3.40); #Monocytes 0.8 thou/uL (0.11-0.59); #Neutrophils 6.3 thou/uL (1.40-6.50); %Basophils 0.5 % (0.0-1.0); %Eosinophils 4.2 % (0.0-10.0); %Lymphocytes 14.2 % (21.0-51.0); %Monocytes 9.1 % (0.0-10.0); %Neutrophils 72.1 % (42.0-75.0); Hemoglobin 11.3 g/dL (12.0-16.0); Mean Corpuscular HGB CONC 32.7 g/dL (32.0-36.0); Mean Corpuscular Hemoglobin 32.6 pg (27.0-31.0); Mean Corpuscular Volume 99.8 fL (78.0-98.0); Mean Platelet Volume 6.4 fL (7.4-10.4); Platelet Count 299 thou/uL (130-400); RBC Distribution Width 12.7 % (11.5-14.5); Red Blood Cell (RBC) Count 3.47 mill/uL (4.20-5.40); White Blood Cell (WBC) Count 8.8 thou/uL (4.8-10.8)
[2018-11-28] MEDS: Milk Of Magnesia 30 ML UDCUP PO SCH (10:12)
[2018-11-28 10:31] LABS: Anion Gap 13 mmol/L (10-20); BUN (Urea Nitrogen) 7 mg/dL (9.8-20.1); Calc. Creatinine Clearance 79 mL/min (70-130); Calcium 9.9 mg/dL (7.8-10.44); Carbon Dioxide 22 mmol/L (23-31); Chloride 108 mmol/L (98-107); Estimated GFR-MDRD 75; Glucose 114 mg/dL (80-115); Potassium 3.7 mmol/L (3.5-5.1); Sodium 139 mmol/L (136-145)
--- NOTE | 2018-11-28 13:50 | DIS ---
DATE OF ADMISSION: 11/26/2018 DATE OF DISCHARGE: 11/28/2018 PRIMARY CARE PHYSICIAN: Jeronimo Call admission. DISCHARGE DISPOSITION: Home. PRIMARY DISCHARGE DIAGNOSES: Abdominal pain due to Clostridium difficile colitis; nausea and vomiting corrected; urinary tract infection, treated in hospital. SECONDARY DISCHARGE DIAGNOSES: Bipolar disorder; macrocytic anemia; hypokalemia, corrected; leukocytosis due to Clostridium difficile infection. PRIMARY PROCEDURE/OPERATION: None. RADIOLOGICAL INVESTIGATION: Abdomen and pelvis CT scan consistent with right-sided colitis. SIGNIFICANT LABORATORY DATA: WBC 8.8, hemoglobin 11.3, platelet 299. Sodium 139, potassium 3.7, BUN 7, creatinine 0.78, calcium 9.9. LFT normal. Stool for infection workup positive for Clostridium difficile. Urine culture negative. DISCHARGE MEDICATIONS: 1. Vancomycin 125 mg p.o. q.6 hourly for 15 days. 2. Florastor 250 mg p.o. daily. 3. Folic acid 1 mg p.o. daily. 4. Vitamin B12 of 1000 mcg p.o. daily. 5. Ambien 20 mg p.o. at bedtime. 6. Effexor XR 200 mg p.o. at bedtime. 7. Seroquel 1200 mg p.o. at bedtime. 8. Multivitamin one tablet p.o. daily. 9. Milk of magnesia 30 mL p.o. daily p.r.n. 10. Lamictal 200 mg p.o. b.i.d. 11. Griseofulvin 500 mg p.o. daily for 2 more days. 12. Calcium carbonate one tablet p.o. b.i.d. 13. Zofran 4 mg q.6 hourly p.r.n. 14. Motrin 400 mg q.6 hourly p.r.n. CONTRAINDICATION: None. CODE STATUS: Full code. INPATIENT OCCUPATIONAL HEALTH AND SAFETY ADVISER: Dr. Arthur was consulted while in hospital. TEST RESULT PENDING ON DISCHARGE: None. ALLERGIES: CODEINE. DISCHARGE PLAN: Posthospital, the patient is instructed to follow up with floor waxer for outpatient evaluation for colonoscopy. HOSPITAL COURSE: A 63-year-old female, who had recently dental infection. At that time, the patient was given course of antibiotic therapy for 2 to 3 weeks. The patient was also taking griseofulvin, which was prescribed from local primary care physician for fungal infection and she was taking for last 2 weeks. The patient was also taking Levaquin. With this treatment, the patient presented to emergency room with complaint of right-sided abdominal pain and she was having nausea, vomiting, and some diarrhea. The patient had CT abdomen and pelvis in the emergency room, which showed right-sided colitis. The patient also had leukocytosis, hypokalemia. The patient was treated with IV fluid. The patient's urinalysis was also consistent with UTI and that is why we treated her with Zosyn. Her stool for infection workup came back positive for Clostridium difficile infection. Initially, there was plan for colonoscopy, but as stool for infection came back positive for Clostridium difficile infection, that is why colonoscopy was canceled and that will be done as an outpatient basis. GI already cleared her for discharge. The patient was doing much better after treatment with vancomycin. The patient's leukocytosis improved and the patient's abdominal pain resolved. Nausea and vomiting resolved and she was tolerating p.o. well, ambulatory, and hemodynamically stable. PHYSICAL EXAMINATION: I have seen and examined the patient at bedside today. VITAL SIGNS: Temperature 98.2, pulse 88, respiratory rate 16,saturation 100% on room air, blood pressure 159/82, and weight 149 pounds. GENERAL: The patient is currently alert, awake, no acute distress. HEENT: Normocephalic and atraumatic. LUNGS: Clear without any rhonchi or rales. CARDIAC: S1 and S2, regular without any murmur. ABDOMEN: Soft and benign. EXTREMITIES: No edema. NEUROLOGIC: Nonfocal examination. Overall, the patient is medically stable for discharge today. Job ID: [id number]
== END 2018-11-28 12:50 | disposition home or self-care (01) | DRG 372 ==
LOC: ERS 09:21 → ONC 12:25
PROVIDERS: ADMIT Internal Medicine; ATTEND Internal Medicine
DX: A04.72 Enterocolitis due to Clostridium difficile, not specified as recurrent (principal); N39.0 Urinary tract infection, site not specified; D53.9 Nutritional anemia, unspecified; F31.9 Bipolar disorder, unspecified; F41.9 Anxiety disorder, unspecified; K59.09 Other constipation; E87.6 Hypokalemia; K21.9 Gastro-esophageal reflux disease without esophagitis; Z88.5 Allergy status to narcotic agent; Z90.710 Acquired absence of both cervix and uterus; Z79.2 Long term (current) use of antibiotics
CPT/HCPCS: 36415; 74177; 80048; 80053; 81003; 81015; 83690; 85025; 87045; 87046; 87086; 87324; 87449; 87493; 87899; 96361; 96365; 96375; J1200; J1650; J1885; J2270; J2405; J2543; J3010; J3480; J3490; Q9966

== ENCOUNTER 2019-02-25 11:28 | Inpatient (IN) | payer MEDICARE ==
[2019-02-25] MEDS ORDERED: Iopamidol 370 76% 100 ML VIAL ONE (12:00)
[2019-02-25 12:47] LABS: #Eosinphils 0.1 thou/uL (0.0-0.7); #Lymphocytes 1.8 thou/uL (1.20-3.40); #Monocytes 0.9 thou/uL (0.11-0.59); #Neutrophils 7.1 thou/uL (1.40-6.50); %Basophils 0.2 % (0.0-1.0); %Eosinophils 0.9 % (0.0-10.0); %Lymphocytes 18.2 % (21.0-51.0); %Monocytes 8.7 % (0.0-10.0); %Neutrophils 72.1 % (42.0-75.0); Hemoglobin 11.8 g/dL (12.0-16.0); Mean Corpuscular HGB CONC 32.6 g/dL (32.0-36.0); Mean Corpuscular Volume 98.2 fL (78.0-98.0); Mean Platelet Volume 6.4 fL (7.4-10.4); Platelet Count 371 thou/uL (130-400); RBC Distribution Width 12.7 % (11.5-14.5); White Blood Cell (WBC) Count 9.8 thou/uL (4.8-10.8)
[2019-02-25 12:56] LABS: Bacteria/HPF None Seen HPF (None Seen); Bilirubin Negative (Negative); Blood, Urine 1+ (Negative); Clarity Clear (Clear); Glucose, Urine (Dipstick) Normal (Negative); Leukocyte Negative Leu/uL (Negative); Nitrite Negative (Negative); Protein, Urine (Dipstick) 10 mg/dL (Neg-Trace); Squamous Epithelial 0-3 HPF (0-3); Urobilinogen Normal mg/dL (Less than 2); WBC/HPF 0-3 HPF (0-3)
[2019-02-25 13:01] LABS: ALT (SGPT) 8 U/L (8-55); AST (SGOT) 17 U/L (5-34); Albumin 4.4 g/dL (3.4-4.8); Alkaline Phosphatase 83 U/L (40-110); Anion Gap 17 mmol/L (10-20); BUN (Urea Nitrogen) 18 mg/dL (9.8-20.1); Bilirubin, Total 0.4 mg/dL (0.2-1.2); Calc. Creatinine Clearance 0 mL/min (70-130); Carbon Dioxide 22 mmol/L (23-31); Chloride 104 mmol/L (98-107); Estimated GFR-MDRD 63; Globulin 4.2 g/dL (2.4-3.5); Glucose 102 mg/dL (80-115); Potassium 4.8 mmol/L (3.5-5.1); Protein, Total 8.6 g/dL (6.0-8.3); Sodium 138 mmol/L (136-145)
--- NOTE | 2019-02-25 15:01 | CT ---
CT Abdomen Pelvis W Con History: Abdominal pain Comparison: CT examination November 2018 Findings: Intracapsular rupture of the breast implants. Small pericardial effusion. Lung bases are clear. Abnormal hyperenhancement and concern for a small perforated ulcer second portion duodenum. There is abnormal adjacent plantar stranding. No large volume free fluid. Previous described colonic thickening is no longer present. Liver and gallbladder are unremarkable. Spleen is unremarkable. Aortic contour is nonaneurysmal. No dilated loops of large or small bowel. No hydronephrosis. Bilateral renal cysts. Moderate degenerative changes of L2/L3. Impression: 1. Findings concerning for perforated ulcer on the posterior margin second portion duodenum with mode rate adjacent inflammatory fluid. No free air. Endoscopy is recommended. Surgical consultation advised. This is best seen on axial image 29.
--- NOTE | 2019-02-25 15:12 | ULT ---
US Gallbladder RUQ History: Pain Comparison: CT same day Findings: Real-time grayscale and color evaluation of the right upper quadrant of the abdomen perform ed. Hepatic echotexture is normal. There is cholelithiasis without cholecystitis. Simple cyst right kidne y. Impression: Cholelithiasis without cholecystitis.
[2019-02-25] MEDS ORDERED: metroNIDAZOLE 500 MG/100 ML BAG ONE (16:02)
[2019-02-25] MEDS ORDERED: Cefepime 2 GM VIAL ONE (16:02)
[2019-02-25] MEDS ORDERED: Ondansetron PF 4 MG/2 ML Vial ONE (16:07)
[2019-02-25] MEDS ORDERED: Morphine 4 MG/ML VIAL ONE (16:07)
[2019-02-25] MEDS ORDERED: Benzocaine 20% Spray 60 ML CAN ONE (16:20)
--- NOTE | 2019-02-25 17:06 | RAD ---
PORTABLE CHEST: HISTORY: Epigastric pain. FINDINGS: Heart size is within normal limits for portable technique with some atherosclerotic changes of the ao rta. The lungs appear clear of any infiltrative process. There are arthritic changes of both shoulder s. IMPRESSION: No active intrathoracic disease. POS: [facility]
--- NOTE | 2019-02-25 17:31 | HP ---
REASON FOR ADMISSION: Abdominal pain and perforated ulcer. HISTORY OF PRESENT ILLNESS: A 63-year-old female with history of anxiety and bipolar disorder, came to the hospital with abdominal pain, lasted for a few days to 1 week, and this morning she started having severe pain. She could not eat very well and was brought to the hospital. She complained of annoying pain periumbilical to upper quadrant of the abdomen with no much radiation. No radiation to her shoulder or back. No nausea or vomiting. No problem with urination. No constipation or diarrhea reported. No fever or chills. No skin rash. No chest pain or palpitation. The patient was taking ibuprofen and Tylenol for her chronic pain. She also takes a few psychotropic medications. Her sister who is a retired RN from our hospital was also at the bedside. The patient was seen in the ER and was found to have perforated ulcer. PAST MEDICAL HISTORY: Positive for anxiety, bipolar, depression, and insomnia. PAST SURGICAL HISTORY: Right leg surgery and wrist surgery, and hysterectomy. HOME MEDICATIONS: 1. Effexor 150 daily. 2. Seroquel 1200 mg at bedtime. 3. Ambien 20 mg at bedtime. 4. Lamictal 150 mg b.i.d. 5. Ibuprofen and Tylenol p.r.n. ALLERGIES: CODEINE. SOCIAL HISTORY: No smoking, alcohol, or illicit drugs. FAMILY HISTORY: No history of kidney disease. CODE STATUS: Full. Her surrogate decision maker is Vanessa, her sister, who is a retired RN from our [place] [facility]. REVIEW OF SYSTEMS: CONSTITUTIONAL: Negative for weight loss or gain, ability to conduct usual activities. SKIN: Negative for rash, itching. EYES: Negative for double vision, pain. ENT/MOUTH: Negative for nose bleeding, neck stiffness, pain, tenderness. CARDIOVASCULAR: Negative for palpitations, dyspnea on exertion, orthopnea. RESPIRATORY: Negative for shortness of breath, wheezing, cough, hemoptysis, fever or night sweats. GASTROINTESTINAL: Negative for poor appetite, abdominal pain, heartburn, nausea, vomiting, constipation, or diarrhea. GENITOURINARY: Negative for urgency, frequency, dysuria, nocturia. MUSCULOSKELETAL: Negative for pain, swelling. NEUROLOGIC/PSYCHIATRIC: Negative for anxiety, depression. ALLERGY/IMMUNOLOGIC: Negative for skin rash, bleeding tendency. PHYSICAL EXAMINATION: GENERAL: This is a thin built female, in mild distress. VITAL SIGNS: Temperature 98.2, pulse 88, respiratory rate 16, blood pressure 159/82. HEENT: Atraumatic, normocephalic. Oral mucosa is moist. NECK: Supple. CV: S1 and S2 heard. RESPIRATORY: Clear. GASTROINTESTINAL: Abdomen is soft. Mildly tender. Bowel sounds are heard. MUSCULOSKELETAL: No edema. No tenderness. DERMATOLOGIC: No skin rash. NEUROLOGIC: Alert and awake. Moving all the extremities. No focal neuro deficits. PSYCHIATRIC: Depressed. LABORATORY DATA: Hemoglobin is 11.8, WBC is 9.8, and platelets 371. Potassium 4.2, BUN is 18, creatinine is 0.9. Albumin is 4.4. Urine with no remarkable abnormality. IMAGING STUDIES: CT abdomen with contrast shows perforated ulcer in the posterior margin and second portion of duodenum with moderate adjacent inflammatory fluid. ASSESSMENT AND PLAN: 1. Abdominal pain, most likely secondary to perforated duodenal ulcer. Surgery is already consulted. GI also consulted. We will plan to continue on IV fluids and pain control and follow with further plans. We will also start her on cefepime and Flagyl. 2. History of anxiety. We will continue her home medications. 3. History of insomnia. Continue her home dose. 4. History of bipolar disorder. Continue her medication. 5. Code status is full. 6. Gastrointestinal/deep vein thrombosis prophylaxis. We will start her on Protonix. We will hold heparin until cleared by Surgery. 7. We will also keep her n.p.o. for now until cleared by Surgery. 8. Continue home medications as tolerated. 9. Further decision will be made based on the clinical course. The patient will be admitted to normal postsurgical floor. Job ID: [id number]
[2019-02-25] MEDS ORDERED: Pantoprazole 40 MG VIAL ONE (18:37)
[2019-02-25] MEDS ORDERED: Ketorolac Tromethamine 30 MG/ML VIAL ONE (18:37)
[2019-02-25] MEDS ORDERED: hydrALAZINE 20 MG/ML VIAL SLOW IVP PRN (19:08)
[2019-02-25] MEDS ORDERED: Ondansetron PF 4 MG/2 ML Vial IVP PRN (19:08)
[2019-02-25] MEDS ORDERED: Sodium Chloride 0.9% (PF) 10 ML VIAL FS PRN (19:16)
[2019-02-25] MEDS ORDERED: Acetaminophen 1,000 MG in Premix Bag 1 BAG IVPB PRN (19:22)
[2019-02-25] MEDS ORDERED: Venlafaxine HCl XR 150 MG CAP PO SCH (21:00)
[2019-02-25] MEDS ORDERED: lamoTRIgine 100 MG TAB PO SCH (21:00)
[2019-02-25] MEDS ORDERED: Pantoprazole 40 MG VIAL IVP SCH (21:00)
[2019-02-25] MEDS ORDERED: Enoxaparin Sodium 40 MG/0.4 ML SYRINGE SC SCH (21:00)
[2019-02-25] MEDS ORDERED: Zolpidem Tartrate 5 MG TAB PO SCH (21:00)
[2019-02-25] MEDS: Lactated Ringer's 1,000 ML IV SCH (21:34)
[2019-02-25 22:15] VITALS: BMI 24.1
--- NOTE | 2019-02-26 01:39 | HP ---
HISTORY OF PRESENT ILLNESS: Carmel Louie is a 63-year-old female, who presents to the hospital with abdominal pain, right side. She was admitted in November with similar pain. CAT scan negative. Stool C difficile positive. She had some dental procedures and antibiotics prior to that. She never had diarrhea. She is on Vancocin. She takes NSAIDs for her right shoulder and her right leg. She is status post ORIF of her tibia on 09/01/2016, revision 08/03/2017, and has [id number] in her right shoulder with chronic pain. Because of her pain, she underwent ultrasound of her gallbladder revealing gallstones. Her liver function tests were normal. Patient had a CT scan of her abdomen and pelvis, demonstrated posterior duodenal ulcer without perforation. There was some stranding. Her sodium is 138, potassium 4.8, BUN 18, creatinine 0.9, bilirubin 0.4. White count 9, hemoglobin 11.8. ALLERGIES: CODEINE. TOBACCO: None. ALCOHOL: Rarely. PAST SURGICAL HISTORY: Right leg ORIF, 2016 and 2018, Dr. England. PAST MEDICAL HISTORY: Chronic pain in right shoulder, more so than right leg. She takes NSAIDs 3-4 times a day for. REVIEW OF SYSTEMS: Noncontributory. MEDICATIONS: 1. Effexor 150 mg a day. 2. Seroquel 1200 at bedtime. 3. Ambien 20 mg at bedtime. 4. Lamictal 150 b.i.d. 5. Ibuprofen and Tylenol p.r.n. as noted above. PHYSICAL EXAMINATION: VITAL SIGNS: 98.2, 88, 16, 140/70. HEAD, EARS, EYES, NOSE, AND THROAT: Unremarkable. LUNGS: Clear to auscultation. CARDIAC: Regular rate and rhythm without murmur or gallop. ABDOMEN: Soft, nondistended, nontympanitic. Mild tenderness in her right upper quadrant. No guarding or rebound. EXTREMITIES: Unremarkable. LABORATORY DATA: As noted. ASSESSMENT AND PLAN: 1. Patient has biliary colic. She has symptoms consistent with biliary colic. She has gallstones. We would recommend laparoscopic video cholecystectomy. 2. Patient has radiological evidence on CAT scan of a posterior duodenal ulcer that is not yet perforated. It is well contained and has some inflammatory changes. We would recommend discontinuation of NSAIDs. We would recommend PPIs and would recommend future endoscopy. She has an appointment to see Dr. Hernandez for colonoscopy in the near future. 3. Chronic NSAID use. Hold. 4. Anxiety. Job ID: [id number]
--- NOTE | 2019-02-26 02:20 | CON ---
DATE OF CONSULTATION: 02/25/2019 CHIEF COMPLAINT: Abdominal pain. HISTORY OF PRESENT ILLNESS: Ms. Louie is a 63-year-old woman, who has had progressively worsening epigastric burning pain over the last week that radiates towards the right upper abdomen and periumbilical region. She has had no nausea or vomiting with this. No diarrhea, constipation, or blood in the stool. She has been taking ibuprofen 2 or 3 times per day as well as Aleve daily. If she does not take ibuprofen, she takes the Aleve 3 times a day. She has been taking the NSAIDs over the last year for shoulder arthritis pain. She was hospitalized back in November with abdominal pain and she had a CT scan performed that showed thickening in the right colon. At that time, she had more right lower quadrant abdominal pain. She had a stool sample checked that was positive for Clostridium difficile and she was treated for that. She was not having significant diarrhea at that time. She reports her last colonoscopy was around [address] Hernandez. When she came back to the emergency room today, she had a CT scan performed that showed inflammatory changes around the duodenum concerning for a contained perforated ulcer. She was also noted by ultrasound to have cholelithiasis. She has been taking several times per day for the abdominal pain, which only helps temporarily. PAST MEDICAL HISTORY: Bipolar disorder, history of pancreatitis, gastroesophageal reflux disease. PAST SURGICAL HISTORY: Hysterectomy, wrist surgery. FAMILY HISTORY: Negative for GI malignancy. SOCIAL HISTORY: She has a past history of heavy alcohol use, but has been abstinent since 2007. No tobacco or drugs. ALLERGIES: CODEINE. MEDICATIONS: Prior to admission include: 1. Ibuprofen. 2. Aleve. 3. Effexor. 4. Seroquel. 5. Ambien. 6. Lamictal. 7. She also takes Tylenol as needed. REVIEW OF SYSTEMS: Negative x10 systems reviewed, except as stated in the history of present illness. PHYSICAL EXAMINATION: VITAL SIGNS: Temperature 98.2, pulse 88, blood pressure 159/82. GENERAL: She is in no acute distress. Alert and oriented x3. HEENT: Eyes have no scleral icterus. Oropharynx is clear without lesions. No cervical or supraclavicular lymphadenopathy. LUNGS: Clear to auscultation bilaterally. HEART: Regular rate and rhythm without murmur. ABDOMEN: Soft. She has mild tenderness in the right upper quadrant to epigastric region. Her bowel sounds are present. No guarding. EXTREMITIES: No lower extremity edema. NEUROLOGIC: Cranial nerves are grossly intact. LABORATORY DATA: White blood cell count 9.8, hemoglobin 11.8, platelets 371. Creatinine 0.9, bilirubin 0.4, AST 17, ALT 8, alkaline phosphatase 83, albumin 4.4, lipase 26. IMPRESSION: 1. Epigastric to right upper quadrant abdominal pain worsening over the last week. She has been taking significant amount of NSAIDs over the last year. CT findings are concerning for duodenal ulcer with question of perforation contained. 2. Cholelithiasis by ultrasound. There are some inflammatory changes in the right upper quadrant between the gallbladder and the duodenum. Dr. Rebollar has evaluated the patient and is also concerned about potential for acute cholecystitis. RECOMMENDATIONS: 1. IV proton pump inhibitor. 2. Plan is for EGD tomorrow. This will be coordinated with laparoscopic cholecystectomy. Job ID: [id number]
[2019-02-26 03:21] VITALS: BP 104/64; TEMP 98.5
[2019-02-26] MEDS: Lactated Ringer's 1,000 ML IV SCH (06:20)
[2019-02-26] MEDS ORDERED: Fentanyl 100 MCG/2 ML VIAL ONE ×3 (08:27→10:40)
[2019-02-26] MEDS ORDERED: Levofloxacin 500 mg/D5W 100 ml Premix Bag ONE (08:32)
[2019-02-26] MEDS ORDERED: Lidocaine 2% PF 5 ML VIAL ONE (08:48)
[2019-02-26] MEDS ORDERED: Bupivacaine HCl 0.5%/Epinephrine 1:200,000/PF 30 ml Vial ONE (08:48)
[2019-02-26] MEDS ORDERED: Promethazine HCl 25 MG/ML VIAL SLOW IVP PRN (10:05)
[2019-02-26] MEDS ORDERED: Meperidine HCl/PF 25 MG/ML VIAL SLOW IVP PRN (10:05)
[2019-02-26] MEDS ORDERED: Ondansetron HCl/PF 4 MG/2 ML Vial IVP PRN (10:05)
[2019-02-26] MEDS ORDERED: traMADol HCl 50 MG TAB PO PRN ×2 (10:08)
[2019-02-26] MEDS ORDERED: Acetaminophen 500 MG TAB PO PRN (10:08)
--- NOTE | 2019-02-26 14:07 | OP ---
DATE OF PROCEDURE: 02/26/2019 PROCEDURE PERFORMED: Esophagogastroduodenoscopy with biopsy. PREOPERATIVE DIAGNOSES: 1. Epigastric pain. 2. Chronic nonsteroidal anti-inflammatory drug use. 3. CT scans suggestive of a duodenal ulcer. DESCRIPTION OF PROCEDURE: Informed consent was obtained from the patient. The procedure was performed under general anesthesia immediately following cholecystectomy under the same anesthesia. The endoscope was advanced easily to the second portion of the duodenum and retroflexion was performed in the stomach. The esophagus was normal. The GE junction was normal. The stomach was normal including retroflexed views. The pylorus was normal. There was a long deep crater ulcer at the junction between the first and second portions of the duodenum. This is more on the anterior lateral wall. The ulcer was 2.5 cm long and 1 cm wide. This had a white base over most of the ulcer and eschar in a couple of areas, but no vessel or stigmata of recent bleeding. Biopsies were obtained from the gastric antrum and distal body to rule out Helicobacter pylori. Air was suctioned from the stomach. The procedure was completed. IMPRESSION: 1. Large ulcer in the duodenum without stigmata of bleeding. 2. Otherwise normal esophagogastroduodenoscopy. Gastric biopsy was taken to rule out Helicobacter pylori. RECOMMENDATIONS: 1. Await histopathology. 2. She will start pantoprazole 40 mg twice daily. 3. Follow up with Dr. Hernandez in a month to schedule. Job ID: [id number]
[2019-02-26] MEDS ORDERED: Ketorolac Tromethamine 30 MG/ML VIAL ONE (15:16)
[2019-02-26] MEDS ORDERED: Rocuronium Bromide 10 MG/ML (10ML VIAL) ONE (15:16)
[2019-02-26] MEDS ORDERED: diphenhydrAMINE 50 MG/ML VIAL ONE (15:16)
[2019-02-26] MEDS ORDERED: Ondansetron PF 4 MG/2 ML Vial ONE (15:16)
[2019-02-26] MEDS ORDERED: Dexamethasone 20 MG/5 ML VIAL ONE (15:16)
[2019-02-26] MEDS ORDERED: PROPOFOL 200 MG/20 ML VIAL ONE (15:16)
[2019-02-26] MEDS ORDERED: Glycopyrrolate 0.2 MG/ML 5 ML SYRINGE ONE (15:16)
--- NOTE | 2019-02-26 15:59 | OP ---
DATE OF PROCEDURE: 02/26/2019 PREOPERATIVE DIAGNOSES: Chronic cholecystitis, cholelithiasis, duodenal ulcer by ultrasound and CAT scan. POSTOPERATIVE DIAGNOSES: Chronic cholecystitis, cholelithiasis, duodenal ulcer by ultrasound and CAT scan. PROCEDURE PERFORMED: Laparoscopic video cholecystectomy. Note, during the same anesthesia, Dr. Parrish at the end of the laparoscopic cholecystectomy performed esophagogastroduodenoscopy, gastric biopsy for H pylori, and visualization of a duodenal ulcer large. The patient will be sent home and instructed to avoid NSAIDs and take PPIs b.i.d. Follow up with Dr. Hernandez for future colonoscopy and care regarding her ulcer. ANESTHESIA: General anesthesia, local 0.5% Marcaine with epinephrine 30 mL. ESTIMATED BLOOD LOSS: Negligible. DESCRIPTION OF PROCEDURE: The patient was taken to the operating room, where under general anesthesia, abdomen was prepared with ChloraPrep and draped in routine fashion. Local anesthetic was infiltrated in the skin and subcutaneous tissue about each port site. Infraumbilical incision was made. Pneumoperitoneum to 15 mmHg was obtained with a Veress needle, replaced with a 5 port, video laparoscope was inserted. Right subxiphoid incision was made and 11 port was placed, right subcostal incision was made at midclavicular and anterior axillary line. The 5 port was placed. Liver was slightly fatty, but otherwise normal. Fundus of the gallbladder was grasped at the cephalad. Infundibulum was grasped laterally. Cystic artery and duct dissected free. Critical view obtained. Cystic artery and duct double clipped proximally, divided and gallbladder dissected free from liver bed obtaining good hemostasis prior to division of the final peritoneal attachments. Gallbladder and large stone removed, submitted to Pathology. Good hemostasis ensured with the cautery. Irrigant and pneumoperitoneum were evacuated. All instruments were removed. Dr. Colt Parrish then entered the room, performed the procedure described above. Job ID: [id number]
--- NOTE | 2019-02-27 01:50 | DIS ---
DATE OF ADMISSION: 02/25/2019 DATE OF DISCHARGE: 02/26/2019 DISCHARGE DIAGNOSES: Abdominal pain. History of Clostridium difficile colitis, on Vancocin. Intermittent right upper quadrant pain, biliary colic, cholecystitis, cholelithiasis. Duodenal ulcer, large junction, first and second portion of the duodenum posteriorly seen on CAT scan, inflammatory stranding without perforation or free air. PROCEDURE: Laparoscopic cholecystectomy, Dr. Rebollar. Dr. Parrish, EGD, biopsy of stomach for H pylori. DISCHARGE MEDICATIONS: The patient will resume her home medications for bipolar illness and take Ultram p.r.n. pain #25, one refill given, PPIs, 40 mg Protonix b.i.d. 3-month supply . Follow up with Dr. Rebollar in 2 to 3 weeks. Follow up with Dr. Hernandez in 4 to 5 weeks. Diet and activity as tolerated. Avoid NSAID. Use Ultram and Tylenol p.r.n. pain. The patient has chronic arthritis, right shoulder and some milder pain in the right leg from 2 previous ORIF to tibia. Job ID: [id number]
[2019-02-27] MEDS ORDERED: Milk Of Magnesia 30 ML UDCUP PO SCH (09:00)
[2019-02-27] MEDS ORDERED: Saccharomyces boulardii 250 MG CAP PO SCH (09:00)
[2019-02-27] MEDS ORDERED: Calcium Carbonate + Vit D 1 TAB PO SCH (09:00)
[2019-02-27] MEDS ORDERED: Cyanocobalamin (Vitamin B-12) 1,000 MCG TAB PO SCH (09:00)
[2019-02-27] MEDS ORDERED: Multivitamin W/ Minerals 1 TAB PO SCH (09:00)
== END 2019-02-26 15:20 | disposition home or self-care (01) | DRG 419 ==
LOC: ERS 11:28 → SURG A 20:18
PROVIDERS: ADMIT Specialist; ATTEND Specialist
PROC: 0DB78ZX Excision of Stomach, Pylorus, Via Natural or Artificial Opening Endoscopic, Diagnostic (ICD-10-PCS; principal; 2019-02-26)
PROC: 0FT44ZZ Resection of Gallbladder, Percutaneous Endoscopic Approach (ICD-10-PCS; 2019-02-26)
DX: K80.10 Calculus of gallbladder with chronic cholecystitis without obstruction (principal); K26.9 Duodenal ulcer, unspecified as acute or chronic, without hemorrhage or perforation; F41.9 Anxiety disorder, unspecified; F51.01 Primary insomnia; G89.4 Chronic pain syndrome; Z96.7 Presence of other bone and tendon implants; F31.9 Bipolar disorder, unspecified; K21.9 Gastro-esophageal reflux disease without esophagitis; M19.011 Primary osteoarthritis, right shoulder; Z90.710 Acquired absence of both cervix and uterus
CPT/HCPCS: 36415; 71045; 74177; 76705; 80053; 81003; 81015; 83605; 83690; 85025; 87040; 87045; 87046; 87427; 87449; 88304; 88305; 88312; C9113; J0131; J0500; J0670; J0692; J1100; J1200; J1650; J1885; J1956; J2001; J2270; J2405; J2704; J3010; Q9967

== ENCOUNTER 2019-06-04 10:53 | Outpatient (CLI) | payer MEDICARE ==
--- NOTE | 2019-06-04 11:25 | RAD ---
Exam: Abdomen one view HISTORY: Constipation. Previous cholecystectomy. FINDINGS: Nonspecific bowel gas pattern. No suspicious densities in the pelvis. Degenerative change i n the right hip. IMPRESSION: Nonspecific bowel gas pattern.
== END 2019-06-04 10:54 | disposition home or self-care (01) ==
LOC: BICRAD 10:53
PROVIDERS: ATTEND Internal Medicine Gastroenterology
DX: K56.41 Fecal impaction (principal); F41.9 Anxiety disorder, unspecified; R07.89 Other chest pain; F32.9 Major depressive disorder, single episode, unspecified; A04.71 Enterocolitis due to Clostridium difficile, recurrent; I10 Essential (primary) hypertension; K85.90 Acute pancreatitis without necrosis or infection, unspecified; K62.89 Other specified diseases of anus and rectum; K26.9 Duodenal ulcer, unspecified as acute or chronic, without hemorrhage or perforation; Z86.010 Personal history of colon polyps
CPT/HCPCS: 74018

== ENCOUNTER 2021-01-19 13:23 | Outpatient (CLI) | payer MEDICARE, OTHER | END 2021-01-19 13:24 | disposition home or self-care (01) | LOC: BICCT 13:23 | PROVIDERS: ATTEND Urology | DX: R31.29 Other microscopic hematuria (principal); R39.198 Other difficulties with micturition; N28.1 Cyst of kidney, acquired; I31.3 Pericardial effusion (noninflammatory) | CPT/HCPCS: 74178; 82565 ==

== ENCOUNTER 2021-09-30 11:29 | Outpatient (CLI) | payer MEDICARE, OTHER ==
[2021-09-30 12:25] LABS: #Basophils 0.1 10x3/uL (0.0-0.2); #Eosinphils 0.1 10x3/uL (0.0-0.5); #Monocytes 0.9 10x3/uL (0.0-1.1); #Neutrophils 7.7 10x3/uL (1.5-8.4); %Basophils 1.2 % (0.0-2.0); %Eosinophils 0.5 % (0.0-6.0); %Lymphocytes 15.4 % (18.0-47.0); %Monocytes 8.5 % (0.0-10.0); Hemoglobin 8.2 g/dL (12.0-15.5); Mean Corpuscular HGB CONC 30.5 g/dL (32.0-36.0); Mean Corpuscular Hemoglobin 26.3 pg (27.0-33.0); Mean Corpuscular Volume 86.2 fl (81.6-98.3); Mean Platelet Volume 8.6 fl (7.4-10.4); Platelet Count 463 10x3/uL (150-450); RBC Distribution Width 16.3 % (11.5-14.5); Red Blood Cell (RBC) Count 3.12 10x6/uL (3.90-5.03); White Blood Cell (WBC) Count 10.4 10x3/uL (3.5-10.5)
[2021-09-30 12:41] LABS: Anion Gap 16 mmol/L (10-20); BUN (Urea Nitrogen) 16 mg/dL (9.8-20.1); Calc. Creatinine Clearance 0 mL/min (70-130); Calcium 9.2 mg/dL (7.8-10.44); Carbon Dioxide 24 mmol/L (23-31); Chloride 108 mmol/L (98-107); Glucose 94 mg/dL (80-115); Potassium 4.5 mmol/L (3.5-5.1); Sodium 143 mmol/L (136-145)
== END 2021-09-30 11:30 | disposition home or self-care (01) ==
LOC: LABBT 11:29
PROVIDERS: ATTEND Orthopaedic Surgery
DX: Z01.818 Encounter for other preprocedural examination (principal); M16.11 Unilateral primary osteoarthritis, right hip; Z20.822 Contact with and (suspected) exposure to COVID-19
CPT/HCPCS: 80048; 85025; 87081; 93005; U0003; U0005; 93010

== ENCOUNTER 2021-10-05 07:28 | Inpatient (IN) | payer MEDICARE, OTHER ==
[2021-10-01 11:37] VITALS: BMI 23.8
[2021-10-05] MEDS ORDERED: Dexamethasone 4 mg/ml Vial ONE (07:58)
[2021-10-05] MEDS ORDERED: Midazolam HCl 2 mg/2 ml Vial ONE ×2 (07:58→10:09)
[2021-10-05] MEDS ORDERED: Fentanyl 100 MCG/2 ML VIAL ONE (07:58)
[2021-10-05] MEDS ORDERED: Lidocaine 1% (PF) 30 ML VIAL ONE (08:17)
[2021-10-05] MEDS ORDERED: Tranexamic Acid 1,000 MG/10 ML VIAL ONE (08:22)
[2021-10-05] MEDS ORDERED: Sodium Chloride 0.9% 100 ML ONE ×2 (08:22→09:57)
[2021-10-05] MEDS ORDERED: Vancomycin 1 GM/200 ML BAG ONE (08:23)
[2021-10-05 08:26] LABS: Prothrombin Time 12.9 sec (12.0-14.7)
[2021-10-05] MEDS ORDERED: Bupivacaine PF 0.5% 30 ML VIAL ONE (09:57)
[2021-10-05] MEDS ORDERED: CEFAZOLIN 2 GM VIAL ONE (09:57)
[2021-10-05] MEDS ORDERED: Ondansetron PF 4 MG/2 ML Vial IVP PRN (10:02)
[2021-10-05] MEDS ORDERED: Promethazine HCl 25 MG/ML VIAL IM PRN ×2 (10:02→12:05)
[2021-10-05] MEDS ORDERED: diphenhydrAMINE 25 MG CAP PO PRN (10:02)
[2021-10-05] MEDS ORDERED: traMADol HCl 50 MG TAB PO PRN (10:02)
[2021-10-05] MEDS ORDERED: Acetaminophen 500 MG TAB PO PRN (10:04)
[2021-10-05] MEDS ORDERED: fentaNYL Citrate/PF 100 MCG/2 ML SYRINGE ONE (10:10)
[2021-10-05] MEDS ORDERED: PROPOFOL 200 MG/20 ML VIAL ONE (10:12)
[2021-10-05] MEDS ORDERED: Dexamethasone 20 MG/5 ML VIAL ONE (10:12)
[2021-10-05] MEDS ORDERED: Bupivacaine HCl 0.5%/Epinephrine 1:200,000/PF 30 ml Vial ONE (10:12)
[2021-10-05] MEDS ORDERED: Ondansetron HCl/PF 4 MG/2 ML Vial IVP PRN (12:05)
[2021-10-05] MEDS ORDERED: HYDROmorphone 2 MG/ML VIAL SLOW IVP PRN (12:05)
[2021-10-05] MEDS ORDERED: Promethazine HCl 25 MG/ML VIAL IVPB PRN (12:05)
[2021-10-05] MEDS: HYDROcodone/Acetaminophen 10/325 mg Tablet PO PRN ×3 (15:00→23:15)
[2021-10-05] MEDS: Sodium Chloride 0.9% 1,000 ML IV SCH ×2 (15:02→21:02)
[2021-10-05] MEDS: traMADol HCl 50 MG TAB PO PRN (17:49)
[2021-10-05] MEDS: CEFAZOLIN 2 GM in Sodium Chloride 0.9% 100 ML IVPB SCH (17:51)
[2021-10-05] MEDS: Zolpidem Tartrate 5 MG TAB PO PRN (20:11)
[2021-10-05] MEDS: lamoTRIgine 100 MG TAB PO SCH (20:59)
[2021-10-05] MEDS: Ferrous Gluconate 324 MG TAB PO SCH (20:59)
[2021-10-05] MEDS: Senokot S 8.6-50 MG TAB PO SCH (20:59)
[2021-10-05] MEDS: Aspirin 81 mg Enteric Coated Tablet PO SCH (20:59)
[2021-10-05] MEDS: guanFACINE HCl 1 MG TAB PO SCH (21:00)
[2021-10-05] MEDS ORDERED: Mirtazapine 15 MG Soltab PO SCH (21:00)
[2021-10-05] MEDS ORDERED: Zolpidem Tartrate 5 MG TAB PO SCH (21:00)
[2021-10-05] MEDS: Gabapentin 300 MG CAP PO SCH (21:01)
[2021-10-05] MEDS: Mirtazapine 15 MG TAB PO SCH (21:14)
[2021-10-05] MEDS ORDERED: Calcium Carbonate 500 MG ChewTAB PO PRN (22:37)
[2021-10-06] MEDS: traMADol HCl 50 MG TAB PO PRN (01:05)
[2021-10-06] MEDS: Calcium Carbonate 500 MG ChewTAB PO PRN ×2 (01:05→06:22)
[2021-10-06] MEDS: CEFAZOLIN 2 GM in Sodium Chloride 0.9% 100 ML IVPB SCH (01:07)
[2021-10-06] MEDS: Fentanyl 100 MCG/2 ML VIAL SLOW IVP PRN ×2 (04:08→06:27)
[2021-10-06] MEDS: HYDROcodone/Acetaminophen 10/325 mg Tablet PO PRN ×4 (05:24→21:01)
[2021-10-06 06:17] LABS: Hemoglobin 7.5 g/dL (12.0-16.0); Mean Corpuscular HGB CONC 31.7 g/dL (32.0-36.0); Mean Corpuscular Hemoglobin 27.5 pg (27.0-31.0); Mean Corpuscular Volume 86.8 fL (78.0-98.0); Mean Platelet Volume 6.1 fL (7.4-10.4); Platelet Count 462 thou/uL (130-400); RBC Distribution Width 14.4 % (11.5-14.5); Red Blood Cell (RBC) Count 2.72 mill/uL (4.20-5.40); White Blood Cell (WBC) Count 8.9 thou/uL (4.8-10.8)
[2021-10-06] MEDS: Sodium Chloride 0.9% 1,000 ML IV SCH ×2 (07:44→17:22)
[2021-10-06] MEDS ORDERED: [UNRECOGNIZED DRUG - OTHER] PO SCH (09:00)
[2021-10-06] MEDS ORDERED: IRON FUM PO SCH (09:00)
[2021-10-06] MEDS ORDERED: FOLIC AC PO SCH (09:00)
[2021-10-06] MEDS ORDERED: Aspirin 81 mg Enteric Coated Tablet PO SCH (09:00)
[2021-10-06] MEDS ORDERED: MULTIVIT MIN PO SCH (09:00)
[2021-10-06] MEDS: guanFACINE HCl 1 MG TAB PO SCH ×2 (09:14→20:50)
[2021-10-06] MEDS: Ferrous Gluconate 324 MG TAB PO SCH ×2 (09:15→20:52)
[2021-10-06] MEDS: Venlafaxine HCl XR 150 MG CAP PO SCH (09:15)
[2021-10-06] MEDS: Aspirin 81 mg Enteric Coated Tablet PO SCH ×2 (09:15→20:52)
[2021-10-06] MEDS: Milk Of Magnesia 30 ML UDCUP PO SCH (09:15)
[2021-10-06] MEDS: Multivitamin W/ Minerals 1 TAB PO SCH (09:15)
[2021-10-06] MEDS: Senokot S 8.6-50 MG TAB PO SCH ×2 (09:15→20:54)
[2021-10-06] MEDS: lamoTRIgine 100 MG TAB PO SCH ×2 (09:15→20:52)
[2021-10-06] MEDS ORDERED: Sodium Chloride 0.9% 500 ML IV SCH (17:45)
[2021-10-06] MEDS: Zolpidem Tartrate 5 MG TAB PO PRN (20:51)
[2021-10-06] MEDS: Mirtazapine 15 MG TAB PO SCH (20:53)
[2021-10-06] MEDS: Gabapentin 300 MG CAP PO SCH (20:54)
[2021-10-07] MEDS: Sodium Chloride 0.9% 1,000 ML IV SCH ×3 (06:00→21:55)
[2021-10-07 06:08] LABS: Hemoglobin 7.2 g/dL (12.0-16.0); Mean Corpuscular HGB CONC 30.4 g/dL (32.0-36.0); Mean Corpuscular Hemoglobin 27.3 pg (27.0-31.0); Mean Corpuscular Volume 89.7 fL (78.0-98.0); Mean Platelet Volume 5.9 fL (7.4-10.4); Platelet Count 381 thou/uL (130-400); RBC Distribution Width 14.6 % (11.5-14.5); Red Blood Cell (RBC) Count 2.62 mill/uL (4.20-5.40); White Blood Cell (WBC) Count 8.3 thou/uL (4.8-10.8)
[2021-10-07] MEDS: guanFACINE HCl 1 MG TAB PO SCH ×2 (09:22→20:35)
[2021-10-07] MEDS: Aspirin 81 mg Enteric Coated Tablet PO SCH ×2 (09:36→20:25)
[2021-10-07] MEDS: Senokot S 8.6-50 MG TAB PO SCH ×2 (09:36→20:25)
[2021-10-07] MEDS: Ferrous Gluconate 324 MG TAB PO SCH ×2 (09:36→20:25)
[2021-10-07] MEDS: lamoTRIgine 100 MG TAB PO SCH ×2 (09:36→20:05)
[2021-10-07] MEDS: Multivitamin W/ Minerals 1 TAB PO SCH (09:36)
[2021-10-07] MEDS: Venlafaxine HCl XR 150 MG CAP PO SCH (09:37)
[2021-10-07] MEDS: Milk Of Magnesia 30 ML UDCUP PO SCH (09:37)
[2021-10-07] MEDS: Acetaminophen 325 MG TAB PO PRN (09:37)
[2021-10-07 10:24] LABS: Anion Gap 13 mmol/L (10-20); BUN (Urea Nitrogen) 10 mg/dL (9.8-20.1); Calc. Creatinine Clearance 66 mL/min (70-130); Calcium 8.9 mg/dL (7.8-10.44); Carbon Dioxide 22 mmol/L (23-31); Chloride 109 mmol/L (98-107); Glucose 116 mg/dL (80-115); Potassium 3.7 mmol/L (3.5-5.1); Sodium 140 mmol/L (136-145)
[2021-10-07] MEDS ORDERED: cefTRIAXone\\ROCEPHIN 1 GM in Sodium Chloride 0.9% 100 ML IVPB SCH (10:45)
[2021-10-07] MEDS ORDERED: Azithromycin 500 MG in Sodium Chloride 0.9% 250 ML 250 ML IVPB SCH (11:00)
[2021-10-07] MEDS ORDERED: ISOVUE-370 76%-LOCM 1 ML ONE (11:44)
[2021-10-07] MEDS ORDERED: Piperacillin/Tazobactam 3.375 GM in Sodium Chloride 0.9% 100 ML IVPB SCH ×2 (12:30→18:00)
[2021-10-07] MEDS: Piperacillin/Tazobactam 3.375 GM in Sodium Chloride 0.9% 100 ML IVPB SCH (16:45)
[2021-10-07] MEDS: Gabapentin 300 MG CAP PO SCH (20:04)
[2021-10-07] MEDS: Mirtazapine 15 MG TAB PO SCH (20:05)
[2021-10-07] MEDS: HYDROcodone/Acetaminophen 10/325 mg Tablet PO PRN (20:26)
[2021-10-07] MEDS: Zolpidem Tartrate 5 MG TAB PO PRN (20:31)
[2021-10-08] MEDS: Piperacillin/Tazobactam 3.375 GM in Sodium Chloride 0.9% 100 ML IVPB SCH ×3 (00:06→16:45)
[2021-10-08 08:13] LABS: Hemoglobin 6.2 g/dL (12.0-16.0); Mean Corpuscular HGB CONC 30.1 g/dL (32.0-36.0); Mean Platelet Volume 6.1 fL (7.4-10.4); Platelet Count 331 thou/uL (130-400); RBC Distribution Width 14.6 % (11.5-14.5)
[2021-10-08] MEDS: Venlafaxine HCl XR 150 MG CAP PO SCH (09:13)
[2021-10-08] MEDS: Senokot S 8.6-50 MG TAB PO SCH ×2 (09:13→20:27)
[2021-10-08] MEDS: Milk Of Magnesia 30 ML UDCUP PO SCH (09:13)
[2021-10-08] MEDS: guanFACINE HCl 1 MG TAB PO SCH ×2 (09:14→20:26)
[2021-10-08] MEDS: Multivitamin W/ Minerals 1 TAB PO SCH (09:14)
[2021-10-08] MEDS: Ferrous Gluconate 324 MG TAB PO SCH ×2 (09:14→20:25)
[2021-10-08] MEDS: Aspirin 81 mg Enteric Coated Tablet PO SCH ×2 (09:14→20:26)
[2021-10-08] MEDS: lamoTRIgine 100 MG TAB PO SCH ×2 (09:14→20:27)
[2021-10-08] MEDS: Acetaminophen 325 MG TAB PO PRN (12:11)
[2021-10-08] MEDS: HYDROcodone/Acetaminophen 10/325 mg Tablet PO PRN ×2 (13:07→17:39)
[2021-10-08] MEDS: Calcium Carbonate 500 MG ChewTAB PO PRN ×2 (13:18→20:24)
[2021-10-08] MEDS: Sodium Chloride 0.9% 1,000 ML IV SCH ×2 (16:45→16:46)
[2021-10-08] MEDS: Gabapentin 300 MG CAP PO SCH (20:25)
[2021-10-08] MEDS: Mirtazapine 15 MG TAB PO SCH (20:26)
[2021-10-08] MEDS: Zolpidem Tartrate 5 MG TAB PO PRN (20:27)
[2021-10-09] MEDS: Piperacillin/Tazobactam 3.375 GM in Sodium Chloride 0.9% 100 ML IVPB SCH (01:19)
[2021-10-09 05:48] LABS: Anion Gap 12 mmol/L (10-20); BUN (Urea Nitrogen) 7 mg/dL (9.8-20.1); Calc. Creatinine Clearance 80 mL/min (70-130); Calcium 8.2 mg/dL (7.8-10.44); Carbon Dioxide 21 mmol/L (23-31); Chloride 110 mmol/L (98-107); Glucose 97 mg/dL (80-115); Potassium 3.3 mmol/L (3.5-5.1); Sodium 140 mmol/L (136-145)
[2021-10-09 06:11] LABS: Hemoglobin 7.9 g/dL (12.0-16.0); Mean Corpuscular HGB CONC 31.8 g/dL (32.0-36.0); Mean Corpuscular Volume 88.2 fL (78.0-98.0); Mean Platelet Volume 6.3 fL (7.4-10.4); Platelet Count 312 thou/uL (130-400); RBC Distribution Width 14.6 % (11.5-14.5); Red Blood Cell (RBC) Count 2.83 mill/uL (4.20-5.40); White Blood Cell (WBC) Count 9.9 thou/uL (4.8-10.8)
[2021-10-09 06:15] LABS: Band 5 % (5-11); Eosinophils 6 % (0-10); Lymphocytes 10 % (21-51); MDiff Complete? YES; Monocytes 12 % (0-10); Neutrophil 66 % (42-75)
[2021-10-09] MEDS ORDERED: Potassium Chloride 20 MEQ TAB PO SCH (08:00)
[2021-10-09] MEDS ORDERED: Amoxicillin/Potassium Clav 875 MG TAB PO SCH (09:00)
[2021-10-09] MEDS: Ferrous Gluconate 324 MG TAB PO SCH (09:02)
[2021-10-09] MEDS: Sodium Chloride 0.9% 1,000 ML IV SCH (09:02)
[2021-10-09] MEDS: Senokot S 8.6-50 MG TAB PO SCH (09:03)
[2021-10-09] MEDS: Venlafaxine HCl XR 150 MG CAP PO SCH (09:04)
[2021-10-09] MEDS: lamoTRIgine 100 MG TAB PO SCH (09:04)
[2021-10-09] MEDS: HYDROcodone/Acetaminophen 10/325 mg Tablet PO PRN (09:05)
[2021-10-09] MEDS: Multivitamin W/ Minerals 1 TAB PO SCH (09:07)
[2021-10-09] MEDS: guanFACINE HCl 1 MG TAB PO SCH (09:08)
[2021-10-09] MEDS: Milk Of Magnesia 30 ML UDCUP PO SCH (09:08)
[2021-10-09] MEDS: Aspirin 81 mg Enteric Coated Tablet PO SCH (09:12)
[2021-10-09 09:45] VITALS: BP 149/71; TEMP 99.2
[2021-10-12 02:07] LABS: QuantiFERON-TB Gold Plus Negative (Negative)
== END 2021-10-09 11:46 | disposition home or self-care (01) | DRG 469 ==
LOC: SDC 07:28 → SJJU 10:02 → SDC 10-06 02:10 → OBSVTOIN 10-07 14:17
PROVIDERS: ADMIT Orthopaedic Surgery; ATTEND Orthopaedic Surgery
PROC: 0SRB0J9 Replacement of Left Hip Joint with Synthetic Substitute, Cemented, Open Approach (ICD-10-PCS; principal; 2021-10-05)
DX: M16.11 Unilateral primary osteoarthritis, right hip (principal); J18.9 Pneumonia, unspecified organism; Z20.822 Contact with and (suspected) exposure to COVID-19; K21.9 Gastro-esophageal reflux disease without esophagitis; F31.9 Bipolar disorder, unspecified; I95.9 Hypotension, unspecified; Y95 Nosocomial condition; Z88.5 Allergy status to narcotic agent; Z79.899 Other long term (current) drug therapy
CPT/HCPCS: 36415; 36430; 71275; 80048; 84145; 85027; 85610; 86480; 86850; 86900; 86901; 96365; 96375; 96376; C1776; G0378; J0690; J0696; J1100; J2001; J2250; J2543; J2704; J3010; J3370; J3490; J7050; P9016; Q9966; S0020

== ENCOUNTER 2022-01-05 10:08 | Outpatient (CLI) | payer MEDICARE ==
[2022-01-05] MEDS ORDERED: Iopamidol-370 76% 500 ML 1 ML ONE (10:40)
== END 2022-01-05 10:09 | disposition home or self-care (01) ==
LOC: BICCT 10:08
PROVIDERS: ATTEND Otolaryngology Plastic Surgery within the Head & Neck
DX: M25.78 Osteophyte, vertebrae (principal); M47.812 Spondylosis without myelopathy or radiculopathy, cervical region
CPT/HCPCS: 36415; 70491; 80053; 80061; 84443; 85025; 86780

== ENCOUNTER 2022-02-03 12:37 | Outpatient (CLI) | payer MEDICARE | END 2022-02-03 12:38 | disposition home or self-care (01) | LOC: EEG 12:37 | PROVIDERS: ATTEND Psychiatry & Neurology Neurology | DX: R41.0 Disorientation, unspecified (principal) | CPT/HCPCS: 95816; 95957 ==

== ENCOUNTER 2022-02-17 16:53 | Emergency (ER) | payer MEDICARE, OTHER ==
[2022-02-17 18:04] LABS: #Basophils 0.1 thou/uL (0.0-0.2); #Eosinphils 0.1 thou/uL (0.0-0.7); #Lymphocytes 1.6 thou/uL (1.20-3.40); #Monocytes 0.7 thou/uL (0.11-0.59); #Neutrophils 3.9 thou/uL (1.40-6.50); %Basophils 0.8 % (0.0-1.0); %Eosinophils 1.3 % (0.0-10.0); %Lymphocytes 24.8 % (21.0-51.0); %Monocytes 10.9 % (0.0-10.0); %Neutrophils 62.2 % (42.0-75.0); Mean Corpuscular HGB CONC 31.9 g/dL (32.0-36.0); Mean Corpuscular Hemoglobin 29.5 pg (27.0-31.0); Mean Corpuscular Volume 92.5 fl (78.0-98.0); Mean Platelet Volume 7.5 fL (7.4-10.4); Platelet Count 250 thou/uL (130-400); RBC Distribution Width 18.1 % (11.5-14.5); Red Blood Cell (RBC) Count 4.05 mill/uL (4.20-5.40); White Blood Cell (WBC) Count 6.3 thou/uL (4.8-10.8)
[2022-02-17 18:28] LABS: Acetaminophen Less than 10.0 mcg/mL (10.0-30.0); Alcohol Less than 10 mg/dL (Less than 10); Salicylate Less than 8.0 mg/dL (15.0-30.0)
[2022-02-17 18:31] LABS: ALT (SGPT) 13 U/L (8-55); AST (SGOT) 26 U/L (5-34); Albumin 4.3 g/dL (3.4-4.8); Alcohol Less than 10 mg/dL (Less than 10); Alkaline Phosphatase 94 U/L (40-110); Anion Gap 16 mmol/L (10-20); BUN (Urea Nitrogen) 16 mg/dL (9.8-20.1); Bilirubin, Total 0.4 mg/dL (0.2-1.2); Calc. Creatinine Clearance 0 mL/min (70-130); Calcium 9.4 mg/dL (7.8-10.44); Carbon Dioxide 20 mmol/L (23-31); Chloride 105 mmol/L (98-107); Estimated GFR 63; Globulin 3.9 g/dL (2.4-3.5); Glucose 88 mg/dL (80-115); Protein, Total 8.2 g/dL (5.8-8.1); Sodium 136 mmol/L (136-145)
[2022-02-17 18:37] LABS: Bilirubin Negative (Negative); Blood, Urine Negative (Negative); Clarity Turbid (Clear); Glucose, Urine (Dipstick) Normal (Negative); Ketone, Urine Negative (Negative); Leukocyte Negative Leu/uL (Negative); Nitrite Negative (Negative); Protein, Urine (Dipstick) 20 mg/dL (Neg-Trace); Specific Gravity, Urine 1.016 (1.002-1.036); Urobilinogen Normal mg/dL (Less than 2); pH, Urine 8.5 (5.0-9.0)
[2022-02-17 18:45] LABS: Amphetamine Not Detected (NotDetected); Barbiturates Screen Not Detected (NotDetected); Benzodiazepine Screen Not Detected (NotDetected); Cocaine Metabolite Screen Not Detected (NotDetected); Methadone Not Detected (NotDetected); Methamphetamine Not Detected (NotDetected); Opiate Screen Not Detected (NotDetected); Oxycodone Screen Not Detected (NotDetected); Phencyclidine (PCP) Not Detected (NotDetected); THC/Cannabinoid Screen Not Detected (NotDetected); Tricyclic Screen Detected (NotDetected)
== END 2022-02-17 22:43 | disposition home or self-care (01) ==
LOC: ERS 16:53
DX: R41.82 Altered mental status, unspecified (principal)
CPT/HCPCS: 36415; 70450; 72125; 80053; 80306; 80307; 81003; 84443; 84484; 85025; 93005

== ENCOUNTER 2022-03-01 09:57 | Outpatient (CLI) | payer MEDICARE ==
[2022-03-01] MEDS ORDERED: Iopamidol-370 76% 500 ML 1 ML ONE (10:42)
== END 2022-03-01 09:58 | disposition home or self-care (01) ==
LOC: BICCT 09:57
PROVIDERS: ATTEND Family Medicine
DX: J18.1 Lobar pneumonia, unspecified organism (principal); R91.8 Other nonspecific abnormal finding of lung field; I31.39 Other pericardial effusion (noninflammatory)
CPT/HCPCS: 71260; Q9967

== ENCOUNTER 2022-05-21 13:20 | Emergency (ER) | payer MEDICARE, OTHER ==
[2022-05-21 13:56] LABS: #Eosinphils 0.1 thou/uL (0.0-0.7); #Lymphocytes 1.1 thou/uL (1.20-3.40); #Monocytes 0.7 thou/uL (0.11-0.59); %Basophils 0.6 % (0.0-1.0); %Lymphocytes 15.9 % (21.0-51.0); %Neutrophils 72.5 % (42.0-75.0); Hemoglobin 12.3 g/dL (12.0-16.0); Mean Corpuscular HGB CONC 33.8 g/dL (32.0-36.0); Mean Corpuscular Hemoglobin 32.7 pg (27.0-31.0); Mean Corpuscular Volume 96.7 fl (78.0-98.0); Mean Platelet Volume 6.9 fL (7.4-10.4); Platelet Count 264 10x3/uL (130-400); RBC Distribution Width 11.1 % (11.5-14.5); Red Blood Cell (RBC) Count 3.78 mill/uL (4.20-5.40); White Blood Cell (WBC) Count 6.9 10x3/uL (4.8-10.8)
[2022-05-21 14:19] LABS: ALT (SGPT) 11 U/L (8-55); AST (SGOT) 14 U/L (5-34); Albumin 4.2 g/dL (3.4-4.8); Alkaline Phosphatase 87 U/L (40-110); Anion Gap 16 mmol/L (10-20); BUN (Urea Nitrogen) 14 mg/dL (9.8-20.1); Bilirubin, Total 0.3 mg/dL (0.2-1.2); Calc. Creatinine Clearance 0 mL/min (70-130); Calcium 9.1 mg/dL (7.8-10.44); Carbon Dioxide 24 mmol/L (23-31); Chloride 105 mmol/L (98-107); Estimated GFR 63; Globulin 3.5 g/dL (2.4-3.5); Glucose 132 mg/dL (80-115); Potassium 3.9 mmol/L (3.5-5.1); Protein, Total 7.7 g/dL (5.8-8.1); Sodium 141 mmol/L (136-145)
== END 2022-05-21 16:24 | disposition home or self-care (01) ==
LOC: ERS 13:20
DX: R55 Syncope and collapse (principal); S01.81XA Laceration without foreign body of other part of head, initial encounter; W18.30XA Fall on same level, unspecified, initial encounter
CPT/HCPCS: 36415; 70450; 72125; 80053; 84484; 85025; 93005

== ENCOUNTER 2022-06-25 08:38 | Inpatient (IN) | payer OTHER, MEDICARE ==
[2022-06-25] MEDS ORDERED: Boostrix 0.5 ML (Tdap) VIAL (>/=7 yrs of age) ONE (09:13)
[2022-06-25] MEDS ORDERED: Acetaminophen 500 MG TAB ONE ×3 (09:13→20:45)
[2022-06-25 09:49] LABS: #Lymphocytes 0.7 thou/uL (1.20-3.40); #Monocytes 0.7 thou/uL (0.11-0.59); #Neutrophils 10.1 thou/uL (1.40-6.50); %Basophils 0.2 % (0.0-1.0); %Eosinophils 0.3 % (0.0-10.0); %Lymphocytes 5.7 % (21.0-51.0); %Monocytes 5.9 % (0.0-10.0); %Neutrophils 87.9 % (42.0-75.0); Hemoglobin 12.8 g/dL (12.0-16.0); Mean Corpuscular HGB CONC 32.2 g/dL (32.0-36.0); Mean Corpuscular Hemoglobin 31.9 pg (27.0-31.0); Mean Platelet Volume 6.9 fL (7.4-10.4); Platelet Count 269 10x3/uL (130-400); RBC Distribution Width 11.7 % (11.5-14.5); White Blood Cell (WBC) Count 11.5 10x3/uL (4.8-10.8)
[2022-06-25 09:54] LABS: Bilirubin Negative (Negative); Blood, Urine Trace (Negative); Glucose, Urine (Dipstick) Negative (Negative); Ketone, Urine Negative (Negative); Leukocyte Trace (Negative); Nitrite Negative (Negative); Protein, Urine (Dipstick) Negative (Neg-Trace); Urobilinogen 0.2 mg/dL (Less than 2)
[2022-06-25 09:59] LABS: Clarity Clear (Clear)
[2022-06-25 10:10] LABS: ALT (SGPT) 11 U/L (8-55); AST (SGOT) 16 U/L (5-34); Albumin 4.3 g/dL (3.4-4.8); Alkaline Phosphatase 71 U/L (40-110); Anion Gap 13 mmol/L (10-20); BUN (Urea Nitrogen) 16 mg/dL (9.8-20.1); Bilirubin, Total 0.3 mg/dL (0.2-1.2); Calc. Creatinine Clearance 0 mL/min (70-130); Carbon Dioxide 25 mmol/L (23-31); Chloride 106 mmol/L (98-107); Estimated GFR 76; Globulin 3.3 g/dL (2.4-3.5); Glucose 105 mg/dL (80-115); Potassium 3.5 mmol/L (3.5-5.1); Protein, Total 7.6 g/dL (5.8-8.1); Sodium 140 mmol/L (136-145)
[2022-06-25 10:13] LABS: Prothrombin Time 13.1 sec (12.0-14.7)
[2022-06-25 10:14] LABS: PTT 22.5 sec (22.9-36.1)
[2022-06-25 10:14] LABS: Bacteria/HPF Rare-Few HPF (None Seen); RBC/HPF 0-3 HPF (0-3); WBC/HPF None Seen HPF (0-3)
[2022-06-25] MEDS ORDERED: Ipratropium/Albuterol 3 ML NEB NEB PRN (10:28)
[2022-06-25] MEDS ORDERED: Dextrose 50% Abboject 50 ML SYRINGE SLOW IVP PRN (10:28)
[2022-06-25] MEDS ORDERED: Dextrose 5% in Water 1,000 ML IV PRN (10:28)
[2022-06-25] MEDS ORDERED: hydrALAZINE 20 MG/ML VIAL SLOW IVP PRN (10:28)
[2022-06-25] MEDS ORDERED: Sodium Chloride 0.9% 1,000 ML IV SCH (10:30)
[2022-06-25] MEDS ORDERED: Piperacillin/Tazobactam 4.5 GM VIAL ONE (10:42)
[2022-06-25] MEDS ORDERED: VANCOMYCIN 1.25 GM/250 ML BAG 1.25 GM in Premix Bag 1 BAG IVPB SCH (12:00)
[2022-06-25] MEDS: Acetaminophen 500 MG TAB PO SCH ×3 (14:05→23:33)
[2022-06-25] MEDS ORDERED: Cyclobenzaprine 10 MG TAB PO PRN (14:06)
[2022-06-25] MEDS ORDERED: Cyclobenzaprine 10 MG TAB ONE (14:08)
[2022-06-25] MEDS ORDERED: Ondansetron PF 4 MG/2 ML Vial ONE (14:08)
[2022-06-25] MEDS: Ondansetron PF 4 MG/2 ML Vial IVP PRN (14:09)
[2022-06-25] MEDS: Morphine 2 MG/ML VIAL SLOW IVP PRN (16:11)
[2022-06-25] MEDS ORDERED: Morphine 2 MG/ML VIAL ONE (16:12)
[2022-06-25] MEDS ORDERED: cefTRIAXone\\ROCEPHIN 2 GM in Sodium Chloride 0.9% 100 ML IVPB SCH (17:30)
[2022-06-25] MEDS: Ferrous Sulfate 325 MG TAB PO SCH ×2 (18:41→18:47)
[2022-06-25] MEDS ORDERED: Gabapentin 300 MG CAP PO SCH (21:00)
[2022-06-25] MEDS ORDERED: QUEtiapine 300 MG TAB PO SCH (21:00)
[2022-06-25] MEDS ORDERED: Mirtazapine 15 MG Soltab PO SCH (21:00)
[2022-06-25] MEDS ORDERED: Zolpidem Tartrate 5 MG TAB PO SCH (21:00)
[2022-06-25] MEDS: guanFACINE HCl 1 MG TAB PO SCH (22:50)
[2022-06-25] MEDS: lamoTRIgine 100 MG TAB PO SCH (23:30)
[2022-06-25] MEDS: Ascorbic Acid 500 mg Chewable Tablet PO SCH (23:31)
[2022-06-25] MEDS: Famotidine/PF 20 mg/2ml Vial SLOW IVP SCH (23:32)
[2022-06-25] MEDS: Ciprofloxacin 0.2% Otic (0.25ML CONTAINER) R EAR SCH (23:39)
[2022-06-26] MEDS: Morphine 2 MG/ML VIAL SLOW IVP PRN ×2 (00:27→09:46)
[2022-06-26 00:28] LABS: SARS-CoV-2 NAA Rapid Test Not Detected (NotDetected)
[2022-06-26 02:38] VITALS: BMI 24.2
[2022-06-26] MEDS: Acetaminophen 500 MG TAB PO SCH ×3 (03:00→14:55)
[2022-06-26] MEDS ORDERED: guanFACINE HCl 1 MG TAB PO SCH ×2 (09:00→21:00)
[2022-06-26] MEDS ORDERED: Escitalopram Oxalate 20 mg Tablet PO SCH (09:00)
[2022-06-26] MEDS ORDERED: Venlafaxine HCl XR 150 MG CAP PO SCH (09:00)
[2022-06-26] MEDS: lamoTRIgine 100 MG TAB PO SCH (09:51)
[2022-06-26] MEDS: Famotidine/PF 20 mg/2ml Vial SLOW IVP SCH (09:51)
[2022-06-26] MEDS: Ascorbic Acid 500 mg Chewable Tablet PO SCH (09:52)
[2022-06-26] MEDS: guanFACINE HCl 1 MG TAB PO SCH (09:52)
[2022-06-26] MEDS: Ciprofloxacin 0.2% Otic (0.25ML CONTAINER) R EAR SCH (09:52)
[2022-06-26] MEDS: Ferrous Sulfate 325 MG TAB PO SCH (09:52)
[2022-06-26 12:20] VITALS: BP 147/82; TEMP 98.4
[2022-06-26] MEDS: Ondansetron PF 4 MG/2 ML Vial IVP PRN (14:55)
[2022-06-27] MEDS ORDERED: Saccharomyces boulardii 250 MG CAP PO SCH (09:00)
== END 2022-06-26 15:30 | disposition home or self-care (01) | DRG 86 ==
LOC: ERS 08:38 → ERHOLD 10:28 → SJJU 22:06
PROVIDERS: ADMIT Surgery; ATTEND Surgery
DX: S06.5X0A Traumatic subdural hemorrhage without loss of consciousness, initial encounter (principal); S09.21XA Traumatic rupture of right ear drum, initial encounter; Z20.822 Contact with and (suspected) exposure to COVID-19; S02.19XA Other fracture of base of skull, initial encounter for closed fracture; R40.2362 Coma scale, best motor response, obeys commands, at arrival to emergency department; R40.2142 Coma scale, eyes open, spontaneous, at arrival to emergency department; R40.2252 Coma scale, best verbal response, oriented, at arrival to emergency department; W01.198A Fall on same level from slipping, tripping and stumbling with subsequent striking against other object, initial encounter; I95.1 Orthostatic hypotension; Z96.641 Presence of right artificial hip joint; F31.9 Bipolar disorder, unspecified; G93.89 Other specified disorders of brain; K21.9 Gastro-esophageal reflux disease without esophagitis; Z90.49 Acquired absence of other specified parts of digestive tract; Z90.710 Acquired absence of both cervix and uterus; Z98.890 Other specified postprocedural states; Z79.899 Other long term (current) drug therapy
CPT/HCPCS: 36416; 70450; 70480; 72125; 80053; 81003; 81015; 84484; 85025; 85610; 85730; 90471; 90715; 93005; 96365; 96366; 96367; G0390; J0696; J2272; J2405; J2543; J3370; J3490; J7050; S0028; U0002

== ENCOUNTER 2022-07-26 10:28 | Outpatient (CLI) | payer MEDICARE, OTHER | END 2022-07-26 10:29 | disposition home or self-care (01) | LOC: BICCT 10:28 | PROVIDERS: ATTEND Neurological Surgery | DX: S06.5X0D Traumatic subdural hemorrhage without loss of consciousness, subsequent encounter (principal); S02.19XD Other fracture of base of skull, subsequent encounter for fracture with routine healing | CPT/HCPCS: 70450 ==

== ENCOUNTER 2022-09-06 14:34 | Outpatient (CLI) | payer MEDICARE | END 2022-09-06 14:35 | disposition home or self-care (01) | LOC: RAD 14:34 | PROVIDERS: ATTEND Neurological Surgery | DX: R13.10 Dysphagia, unspecified (principal); M10.0 Idiopathic gout | CPT/HCPCS: 72050 ==

== ENCOUNTER 2022-12-01 13:27 | Outpatient (CLI) | payer MEDICARE, OTHER | END 2022-12-01 13:28 | disposition home or self-care (01) | LOC: BICMRI 13:27 | PROVIDERS: ATTEND Neurological Surgery | DX: M47.812 Spondylosis without myelopathy or radiculopathy, cervical region (principal) | CPT/HCPCS: 72141 ==

== ENCOUNTER 2022-12-03 14:08 | Outpatient (CLI) | payer MEDICARE, OTHER ==
[2022-12-03 15:11] LABS: #Basophils 0.1 10x3/uL (0.0-0.2); #Eosinphils 0.2 10x3/uL (0.0-0.5); #Neutrophils 3.2 10x3/uL (1.5-8.4); %Basophils 1.4 % (0.0-2.0); %Eosinophils 3.8 % (0.0-6.0); %Lymphocytes 28.6 % (18.0-47.0); %Monocytes 15.6 % (0.0-10.0); Hematocrit 34.9 % (34.9-44.5); Mean Corpuscular HGB CONC 31.5 g/dL (32.0-36.0); Mean Corpuscular Hemoglobin 30.5 pg (27.0-33.0); Mean Corpuscular Volume 96.7 fl (81.6-98.3); Mean Platelet Volume 9.1 fl (7.4-10.4); Platelet Count 283 10x3/uL (150-450); RBC Distribution Width 13.1 % (11.5-14.5); Red Blood Cell (RBC) Count 3.61 10x6/uL (3.90-5.03); White Blood Cell (WBC) Count 6.4 10x3/uL (3.5-10.5)
== END 2022-12-03 14:09 | disposition home or self-care (01) ==
LOC: LABBT 14:08
PROVIDERS: ATTEND Orthopaedic Surgery Hand Surgery
DX: Z01.818 Encounter for other preprocedural examination (principal); M15.1 Heberden's nodes (with arthropathy); M67.449 Ganglion, unspecified hand; G58.8 Other specified mononeuropathies
CPT/HCPCS: 85025; 93005; 93010

== ENCOUNTER 2022-12-06 11:59 | Day surgery (SDC) | payer MEDICARE, OTHER ==
[2022-12-03 14:35] VITALS: BMI 22.8
[2022-12-06] MEDS ORDERED: Bupivacaine PF 0.5% 30 ML VIAL ONE (13:19)
[2022-12-06] MEDS ORDERED: Bacitracin Zinc Ointment 30 gm TUBE ONE (13:19)
[2022-12-06] MEDS ORDERED: Betamet Acet/Betamet Na Ph 30 MG/5 ML VIAL ONE (13:19)
[2022-12-06] MEDS ORDERED: fentaNYL 50 mcg/mL 1 mL Vial ONE ×3 (13:31→15:59)
[2022-12-06] MEDS ORDERED: Famotidine/PF 20 mg/2ml Vial ONE (13:31)
[2022-12-06] MEDS ORDERED: Sodium Chloride 0.9% 100 ML ONE (13:58)
[2022-12-06] MEDS ORDERED: CEFAZOLIN 2 GM VIAL ONE (13:58)
[2022-12-06] MEDS ORDERED: PROPOFOL 200 MG/20 ML VIAL ONE (14:15)
[2022-12-06] MEDS ORDERED: Ondansetron PF 4 MG/2 ML Vial ONE ×3 (14:15→16:47)
[2022-12-06] MEDS ORDERED: Dexamethasone 20 MG/5 ML VIAL ONE (14:15)
[2022-12-06] MEDS ORDERED: HYDROmorphone 2 MG/ML VIAL ONE (16:45)
[2022-12-06] MEDS ORDERED: Ketorolac Tromethamine 30 MG/ML VIAL ONE (17:20)
== END 2022-12-06 18:55 | disposition home or self-care (01) ==
LOC: SDC 11:59
PROVIDERS: ATTEND Orthopaedic Surgery Hand Surgery
PROC: 0LB70ZZ Excision of Right Hand Tendon, Open Approach (ICD-10-PCS; principal; 2022-12-06)
PROC: 01N40ZZ Release Ulnar Nerve, Open Approach (ICD-10-PCS; 2022-12-06)
PROC: 0RG Upper Joints, Fusion (ICD-10-PCS; 2022-12-06)
DX: M67.441 Ganglion, right hand (principal); G56.21 Lesion of ulnar nerve, right upper limb; M19.041 Primary osteoarthritis, right hand; Z90.89 Acquired absence of other organs; Z90.710 Acquired absence of both cervix and uterus; Z88.6 Allergy status to analgesic agent
CPT/HCPCS: 26160; 26860; 64719; 73140; C1713 ×2; J3010; 88304; J0702; J1100; J1170; J1885; J2405; J2704; J3490; S0020; S0028

== ENCOUNTER 2023-01-12 12:28 | Day surgery (SDC) | payer MEDICARE, OTHER ==
[2023-01-11 10:54] VITALS: BMI 22.8
[2023-01-12] MEDS ORDERED: HYDROmorphone 0.5 MG/0.5 ML SYRINGE ONE (12:51)
[2023-01-12] MEDS ORDERED: fentaNYL PF 100 MCG/2 ML SYRINGE ONE (12:51)
[2023-01-12] MEDS ORDERED: Sodium Chloride 0.9% 100 ML ONE (13:37)
[2023-01-12] MEDS ORDERED: CEFAZOLIN 2 GM VIAL ONE (13:37)
[2023-01-12] MEDS ORDERED: Midazolam HCl 2 mg/2 ml Vial ONE (14:05)
[2023-01-12] MEDS ORDERED: Famotidine/PF 20 mg/2ml Vial ONE (14:05)
[2023-01-12] MEDS ORDERED: Ondansetron PF 4 MG/2 ML Vial ONE (14:15)
[2023-01-12] MEDS ORDERED: PROPOFOL 200 MG/20 ML VIAL ONE (14:15)
[2023-01-12] MEDS ORDERED: Lidocaine 1% PF 5 ML VIAL ONE (14:15)
[2023-01-12] MEDS ORDERED: Ketorolac Tromethamine 30 MG/ML VIAL ONE (14:15)
[2023-01-12] MEDS ORDERED: Rocuronium Bromide 10 MG/ML (10ML VIAL) ONE (14:15)
[2023-01-12] MEDS ORDERED: Dexamethasone 20 MG/5 ML VIAL ONE (14:15)
[2023-01-12] MEDS ORDERED: Succinylcholine 200 MG/10 ml SYRINGE FS ONE (14:15)
[2023-01-12] MEDS ORDERED: Bupivacaine PF 0.5% 30 ML VIAL ONE (14:43)
[2023-01-12] MEDS ORDERED: Bacitracin Zinc Ointment 30 gm TUBE ONE (14:44)
== END 2023-01-12 16:50 | disposition home or self-care (01) ==
LOC: SDC 12:28
PROVIDERS: ATTEND Orthopaedic Surgery Hand Surgery
PROC: 0PC00ZZ Extirpation of Matter from Sternum, Open Approach (ICD-10-PCS; principal; 2023-01-12)
DX: T84.84XA Pain due to internal orthopedic prosthetic devices, implants and grafts, initial encounter (principal); S60.429A Blister (nonthermal) of unspecified finger, initial encounter; M67.449 Ganglion, unspecified hand; M15.1 Heberden's nodes (with arthropathy); G58.8 Other specified mononeuropathies; L03.011 Cellulitis of right finger; F31.9 Bipolar disorder, unspecified; D50.9 Iron deficiency anemia, unspecified; N20.0 Calculus of kidney; K85.90 Acute pancreatitis without necrosis or infection, unspecified; Z90.710 Acquired absence of both cervix and uterus; Z90.89 Acquired absence of other organs; Z98.890 Other specified postprocedural states; Z79.899 Other long term (current) drug therapy; Z88.5 Allergy status to narcotic agent; X58.XXXA Exposure to other specified factors, initial encounter
CPT/HCPCS: 20680; 73140; C1713; J1100; J1170; J1885; J2250; J2405; J2704; J3490; S0020; S0028

== ENCOUNTER 2023-05-06 07:34 | Day surgery (SDC) | payer MEDICARE ==
[2023-05-04 15:57] VITALS: BMI 23.8
[2023-05-06] MEDS ORDERED: PROPOFOL 20 ML ONE (08:53)
[2023-05-06] MEDS ORDERED: fentaNYL PF 100 MCG/2 ML SYRINGE ONE (08:53)
[2023-05-06] MEDS ORDERED: Lidocaine 1% PF 5 ML VIAL ONE (08:53)
[2023-05-06] MEDS ORDERED: ePHEDrine Sulfate 50 MG/10 ML VIAL ONE (09:02)
[2023-05-06] MEDS ORDERED: Bacitracin Zinc Ointment 30 gm TUBE ONE (09:27)
[2023-05-06] MEDS ORDERED: Bupivacaine PF 0.5% 30 ML VIAL ONE (09:28)
[2023-05-06] MEDS ORDERED: Midazolam HCl 2 mg/2 ml Vial ONE (10:23)
[2023-05-06] MEDS ORDERED: Famotidine/PF 20 mg/2ml Vial ONE (10:24)
[2023-05-06] MEDS ORDERED: CEFAZOLIN 2 GM VIAL ONE (10:33)
[2023-05-06] MEDS ORDERED: Sodium Chloride 0.9% 100 ML ONE (10:33)
[2023-05-06] MEDS ORDERED: Dexmedetomidine 200 MCG/2 ML VIAL ONE (11:06)
[2023-05-06] MEDS ORDERED: Dexamethasone 4 mg/ml Vial ONE (11:34)
[2023-05-06] MEDS ORDERED: Ondansetron PF 4 MG/2 ML Vial ONE (11:34)
[2023-05-06] MEDS ORDERED: fentaNYL 50 mcg/mL 1 mL Vial ONE ×5 (11:54→13:00)
[2023-05-06] MEDS ORDERED: HYDROcodone/Acetaminophen 5/325 mg Tablet ONE (13:37)
== END 2023-05-06 14:51 | disposition home or self-care (01) ==
LOC: SDC 07:34
PROVIDERS: ATTEND Orthopaedic Surgery Hand Surgery
PROC: 0RCW0ZZ Extirpation of Matter from Right Finger Phalangeal Joint, Open Approach (ICD-10-PCS; principal; 2023-05-06)
PROC: 0XP60YZ Removal of Other Device from Right Upper Extremity, Open Approach (ICD-10-PCS; 2023-05-06)
DX: M15.1 Heberden's nodes (with arthropathy) (principal); L03.011 Cellulitis of right finger; M00.9 Pyogenic arthritis, unspecified; Z88.5 Allergy status to narcotic agent; F31.9 Bipolar disorder, unspecified; Z90.710 Acquired absence of both cervix and uterus; Z90.89 Acquired absence of other organs; Z98.890 Other specified postprocedural states; Z79.899 Other long term (current) drug therapy
CPT/HCPCS: 20680; 26080; 87070; 87075; 87205; J3010; 88305; 88311; J1100; J2250; J2405; J2704; J3490; S0020; S0028

== ENCOUNTER 2023-05-24 09:17 | Outpatient (CLI) | payer MEDICARE | END 2023-05-24 09:18 | disposition home or self-care (01) | LOC: BICMAMMO 09:17 | PROVIDERS: ATTEND Family Medicine | DX: N63.21 Unspecified lump in the left breast, upper outer quadrant (principal) | CPT/HCPCS: 76642; 77066; G0279 ==

== ENCOUNTER 2023-06-23 15:29 | Outpatient (CLI) | payer MEDICARE, OTHER ==
[2023-06-23 16:45] LABS: #Basophils 0.1 10x3/uL (0.0-0.2); #Eosinphils 0.2 10x3/uL (0.0-0.5); #Monocytes 0.8 10x3/uL (0.0-1.1); #Neutrophils 2.4 10x3/uL (1.5-8.4); %Basophils 1.3 % (0.0-2.0); %Eosinophils 3.2 % (0.0-6.0); %Lymphocytes 35.5 % (18.0-47.0); %Monocytes 14.6 % (0.0-10.0); Hematocrit 37.4 % (34.9-44.5); Hemoglobin 11.9 g/dL (12.0-15.5); Mean Corpuscular HGB CONC 31.8 g/dL (32.0-36.0); Mean Corpuscular Hemoglobin 29.9 pg (27.0-33.0); Platelet Count 306 10x3/uL (150-450); RBC Distribution Width 13.5 % (11.5-14.5); Red Blood Cell (RBC) Count 3.98 10x6/uL (3.90-5.03); White Blood Cell (WBC) Count 5.3 10x3/uL (3.5-10.5)
[2023-06-23 17:04] LABS: Anion Gap 13 mmol/L (10-20); BUN (Urea Nitrogen) 19 mg/dL (9.8-20.1); Calc. Creatinine Clearance 0 mL/min (70-130); Calcium 9.2 mg/dL (7.8-10.44); Carbon Dioxide 28 mmol/L (23-31); Chloride 105 mmol/L (98-107); Estimated GFR 64; Glucose 99 mg/dL (80-115); Potassium 4.3 mmol/L (3.5-5.1); Sodium 142 mmol/L (136-145)
== END 2023-06-23 15:30 | disposition home or self-care (01) ==
LOC: LABBT 15:29
PROVIDERS: ATTEND Surgery
DX: Z01.818 Encounter for other preprocedural examination (principal); K62.3 Rectal prolapse
CPT/HCPCS: 80048; 85025; 93005; 93010